=== PATIENT | female | born 1940 | race Caucasian/White ===

== ENCOUNTER 2018-12-21 15:50 | Inpatient (IN) | payer MEDICARE, OTHER ==
[2018-12-21] MEDS ORDERED: DILTIAZEM HCL INJ 25 MG/5 ML VIAL ONE (16:12)
[2018-12-21] MEDS ORDERED: DILTIAZEM HCL/D5W 125 MG/125 ML RTUINJ IV ONE (16:12)
[2018-12-21] MEDS ORDERED: IPRATROPIUM/ALBUTEROL 0.5-2.5 MG/3 ML AMPUL NEB ONE (16:16)
--- NOTE | 2018-12-21 16:16 | ER Document Report ---
ED General - General Chief Complaint: Chest Pain Stated Complaint: CHEST PAIN Time Seen by Provider: 12/21/18 16:14 Notes: Patient is a 78-year-old female with history of non-that presents to the emergency department for chief complaint of shortness of breath and palpitations. Patient reports that she started having more short of breath and palpitations that started earlier today, got progressively worse so she decided come to the emergency department. She states she is receiving experimental treatment for non-small cell lung carcinoma, was recently diagnosed within this year, she states it is improving as far she knows. She called over to the oncologist office and advised her to come to the emergency department. She denies prior history of atrial fibrillation. Denies other chronic medical conditions such as diabetes mellitus, hypertension, hyperlipidemia. No prior history of coronary disease or CHF that the patient is aware of. She has not noted any increased leg swelling recently either. She denies having any chest pain on my history taking. Past Medical History: Non-small cell lung carcinoma Past Surgical History: Cholecystectomy Social History: Denies tobacco, alcohol or drug use. Family History: Reviewed and noncontributory for presenting illness Allergies: Reviewed, see documented allergy list. REVIEW OF SYSTEMS: Other than noted above, the 12 point review of systems was reviewed with the patient and were negative, all pertinent findings are included in the HPI. PHYSICAL EXAMINATION: Vital signs reviewed, nursing noted reviewed. GENERAL: Patient in moderate distress, appears anxious HEAD: Atraumatic, normocephalic. EYES: Eyes appear normal, extraocular movements intact, sclera anicteric, conj unctiva are normal. ENT: nares patent, oropharynx clear without exudates. Moist mucous membranes. NECK: Normal range of motion, supple without lymphadenopathy LUNGS: No acute respiratory distress, lung sounds diminished at the bases bilaterally, she has diffuse wheezing in the upper lung lowry as well. HEART: Heart rate tachycardic, irregular rhythm, no audible murmur ABDOMEN: Soft, nontender, normoactive bowel sounds. No rebound, guarding, or rigidity. No masses appreciated. EXTREMITIES: Nontender, good range of motion, no pitting or edema. NEUROLOGICAL: No focal neurological deficits. Moves all extremities spontaneously Motor and sensory grossly intact on exam. PSYCH: Mildly anxious on exam, but answering questions appropriately. SKIN: Warm, Dry, normal turgor, no rashes or lesions noted on exposed skin TRAVEL OUTSIDE OF THE [place] IN LAST 30 DAYS: No - Related Data Allergies/Adverse Reactions: Sulfa (Sulfonamide Antibiotics) Allergy (Verified 12/21/18 17:01) Past Medical History - Social History Smoking Status: Never Smoker Family History: Reviewed & Not Pertinent Physical Exam - Vital signs Vitals: Resp Pulse Ox 26 H 96 12/21/18 16:10 12/21/18 16:10 Course - Re-evaluation Re-evalutation: Patient seen and examined vital signs reviewed. Laboratory data and imaging were ordered as appropriate for the patient's presenting symptoms and complaint, with consideration of any critical or life threatening conditions that may be associated with their obtained history and exam as noted above. Patient was treated with Cardizem bolus of 50 mg, with infusion, is to bring the patient's heart rate down from the 170s, down to 150s, but she is still rather tachycardic despite being on 15 mg an hour, at this point I decided to give the patient metoprolol 5 mg IV, which did improve the patient's heart rate to the 110s, and she appeared much more comfortable on exam, she is also given DuoNeb breathing treatments due to her wheezing. She was also placed on supplemental oxygen. Results were reviewed when available and demonstrated CT angiogram of the chest was obtained, to rule out pulmonary embolism in a patient that is tachycardic, short of breath with a history of lung cancer, this was negative for PE, but did demonstrate bilateral moderate-sized pleural effusions, without evidence of pneumonia. The patient was re-evaluated and was much improved after heart rate was controlled. Evaluation was most consistent with atrial fibrillation with rapid ventricular response, bilateral pleural effusions, likely related to the patient's lung carc inoma versus acute heart failure, which may be related to medications versus heart strain due to the patient's underlying lung disease. A call was placed to [facility], to review results, did discuss with the nursing staff, reviewed her prior CTs which did not show effusions, as recent as November. Results were discussed with the patient at this point after careful consideration I feel that that patient should be admitted to the hospital. This was discussed with the patient that it is in the best interest for their care to be admitted for further evaluation and management. Patient agreed with this plan of care. A call was placed to the admitted physician, Dr. Monet who graciously accepted the patient onto their service. *Note is created using voice recognition software and may contain spelling, syntax or grammatical errors. Laboratory 12/21/18 12/21/18 12/21/18 16:10 16:10 16:10 WBC 13.3 H RBC 3.88 Hgb 11.5 L Hct 35.1 L MCV 91 MCH 29.8 MCHC 32.9 RDW 16.3 H Plt Count 199 Seg Neutrophils % 86.0 H Lymphocytes % 5.6 L Monocytes % 7.8 Eosinophils % 0.2 Basophils % 0.4 Absolute Neutrophils 11.4 H Absolute Lymphocytes 0.7 Absolute Monocytes 1.0 Absolute Eosinophils 0.0 Absolute Basophils 0.1 Sodium 140.9 Potassium 4.7 Chloride 107 Carbon Dioxide 21 L Anion Gap 13 BUN 34 H Creatinine 0.87 Est GFR ( Amer) > 60 Est GFR (Non-Af Amer) > 60 Glucose 197 H Calcium 10.4 H Magnesium 2.1 Total Bilirubin 0.6 Direct Bilirubin 0.5 H Neonat Total Bilirubin Not Reportable Neonat Direct Bilirubin Not Reportable Neonat Indirect Bili Not Reportable AST 111 H ALT 113 H Alkaline Phosphatase 85 Troponin I 0.019 NT-Pro-B Natriuret Pep Total Protein 6.2 L Albumin 3.7 12/21/18 16:10 WBC RBC Hgb Hct MCV MCH MCHC RDW Plt Count Seg Neutrophils % Lymphocytes % Monocytes % Eosinophils % Basophils % Absolute Neutrophils Absolute Lymphocytes Absolute Monocytes Absolute Eosinophils Absolute Basophils Sodium Potassium Chloride Carbon Dioxide Anion Gap BUN Creatinine Est GFR ( Amer) Est GFR (Non-Af Amer) Glucose Calcium Magnesium Total Bilirubin Direct Bilirubin Neonat Total Bilirubin Neonat Direct Bilirubin Neonat Indirect Bili AST ALT Alkaline Phosphatase Troponin I NT-Pro-B Natriuret Pep 1920 H Total Protein Albumin Chest X-Ray 12/21/18 16:15 IMPRESSION: BASILAR ATELECTASIS VERSUS SCARRING. PROBABLE SMALL PLEURAL EFFUSIONS. Chest/Abdomen CTA 12/21/18 16:57 IMPRESSION: There is no evidence of pulmonary emboli. 13 mm spiculated right pulmonary nodule. Bilateral moderate pleural effusions, right slightly greater than left. - Vital Signs Vital signs: Temp Pulse Resp BP Pulse Ox 97.5 F 115 H 24 H 100/81 91 L 12/21/18 16:37 12/21/18 19:34 12/21/18 19:30 12/21/18 19:30 12/21/18 19:30 - Laboratory Result Diagrams: 12/21/18 16:10 12/21/18 16:10 Laboratory results interpreted by me: 12/21/18 12/21/18 12/21/18 16:10 16:10 16:10 WBC 13.3 H Hgb 11.5 L Hct 35.1 L RDW 16.3 H Seg Neutrophils % 86.0 H Lymphocytes % 5.6 L Absolute Neutrophils 11.4 H Carbon Dioxide 21 L BUN 34 H Glucose 197 H Calcium 10.4 H Direct Bilirubin 0.5 H AST 111 H ALT 113 H NT-Pro-B Natriuret Pep 1920 H Total Protein 6.2 L - EKG Interpretation by Me Additional EKG results interpreted by me: EKG demonstrates atrial fibrillation with rapid ventricular response, with a ventricular rate of 179 bpm, normal axis, QTC 439 ms, no evidence of acute ischemia in this EKG. No prior for comparison. Critical Care Note - Critical Care Note Total time excluding time spent on procedures (mins): 45 Comments: Critical care time 45 minutes exclusive from separate billable procedures for a patient requiring complex medical decision making, and high potential for clinical deterioration. In a patient with atrial fibrillation with rapid ventricular response requiring IV Cardizem infusion. Time spent obtaining history from patient or surrogate, discussions with consultants, development of treatment plan with patient or surrogate, evaluation of patient's response to treatment, examination of patient, ordering and performing treatments and interventions, ordering and review of laboratory studies, re-evaluation of patient's condition, ordering and review of radiographic studies and review of old charts Discharge - Discharge Clinical Impression: Atrial fibrillation with RVR, Bilateral pleural effusion, Transaminitis Non-small cell lung cancer Qualifiers: Laterality: unspecified laterality Qualified Code(s): C34.90 - Malignant neoplasm of unspecified part of unspecified bronchus or lung Condition: Stable Disposition: ADMITTED INPATIENT Admitting Provider: Chiki (Hospitalist) Unit Admitted: [facility]
[2018-12-21] MEDS: DILTIAZEM HCL/D5W 125 MG/125 ML RTUINJ IV PRN (16:20)
[2018-12-21 16:26] LABS: ABSOLUTE BASOPHILS # (AUTO) 0.1 10^3/uL (0.0-0.2); ABSOLUTE LYMPHOCYTES (AUTO) 0.7 10^3/uL (0.5-4.7); ABSOLUTE NEUT (AUTO) 11.4 10^3/uL (1.7-8.2); BASOPHILS % (AUTO) 0.4 % (0-2); EOSINOPHILS % (AUTO) 0.2 % (0-6); HEMATOCRIT 35.1 % (36.0-47.0); HEMOGLOBIN 11.5 g/dL (12.0-15.5); LYMPHOCYTES % (AUTO) 5.6 % (13-45); MEAN CORPUSCULAR HEMOGLOBIN 29.8 pg (27.0-33.4); MEAN CORPUSCULAR HGB CONC 32.9 g/dL (32.0-36.0); MEAN CORPUSCULAR VOLUME 91 fl (80-97); MONOCYTES % (AUTO) 7.8 % (3-13); PLATELET COUNT 199 10^3/uL (150-450); RED BLOOD COUNT 3.88 10^6/uL (3.72-5.28); RED CELL DISTRIBUTION WIDTH 16.3 % (11.5-14.0); TOTAL CELLS COUNTED % (AUTO) 100 %; WHITE BLOOD COUNT 13.3 10^3/uL (4.0-10.5)
[2018-12-21 16:48] LABS: ALANINE AMINOTRANSFERASE 113 U/L (9-52); ALBUMIN 3.7 g/dL (3.5-5.0); ALKALINE PHOSPHATASE 85 U/L (38-126); ANION GAP 13 (5-19); ASPARTATE AMINO TRANSFERASE 111 U/L (14-36); BILIRUBIN,DIRECT 0.5 mg/dL (0.0-0.4); BILIRUBIN,TOTAL 0.6 mg/dL (0.2-1.3); BLOOD UREA NITROGEN 34 mg/dL (7-20); CALCIUM 10.4 mg/dL (8.4-10.2); CARBON DIOXIDE 21 mmol/L (22-30); CHLORIDE 107 mmol/L (98-107); GLUCOSE 197 mg/dL (75-110); POTASSIUM 4.7 mmol/L (3.6-5.0); SODIUM 140.9 mmol/L (137-145); TOTAL PROTEIN 6.2 g/dL (6.3-8.2)
[2018-12-21] MEDS ORDERED: DILTIAZEM HCL INJ 25 MG/5 ML VIAL IV ONE (16:51)
--- NOTE | 2018-12-21 16:51 | RADIOLOGY REPORT (SQ) ---
EXAM DESCRIPTION: CHEST SINGLE VIEW COMPLETED DATE/TIME: 12/21/2018 4:40 pm REASON FOR STUDY: shortness of breath COMPARISON: None. EXAM PARAMETERS: NUMBER OF VIEWS: One view. TECHNIQUE: Single frontal radiographic view of the chest acquired. RADIATION DOSE: NA LIMITATIONS: None. FINDINGS: LUNGS AND PLEURA: Basilar atelectasis versus scarring. Probable small pleural effusions. MEDIASTINUM AND HILAR STRUCTURES: No masses. Contour normal. HEART AND VASCULAR STRUCTURES: Heart normal in size. Normal vasculature. BONES: No acute findings. HARDWARE: None in the chest. OTHER: No other significant finding. IMPRESSION: BASILAR ATELECTASIS VERSUS SCARRING. PROBABLE SMALL PLEURAL EFFUSIONS. TECHNICAL DOCUMENTATION: JOB ID: [id number] [employer]- All Rights Reserved Reading location - IP/workstation name: [email or web address]
[2018-12-21] MEDS ORDERED: METOPROLOL TARTRATE PF/INJ 5 MG/5 ML SDV IV ONE (17:31)
--- NOTE | 2018-12-21 17:40 | RADIOLOGY REPORT (SQ) ---
EXAM DESCRIPTION: CTA CHEST COMPLETED DATE/TIME: 12/21/2018 5:21 pm REASON FOR STUDY: shortness of breath, tachy, hx lung cancer COMPARISON: Chest x-ray 12/21/2018 TECHNIQUE: CT scan of the chest performed using helical scanning technique with dynamic intravenous contrast injection. Images reviewed with lung, soft tissue and bone windows. Reconstructed coronal and sagittal MPR images reviewed. Additional 3 dimensional post-processing performed to develop Maximal Intensity Projection images (IA P). All images stored on PACS. All CT scanners at this facility use dose modulation, iterative reconstruction, and/or weight based d osing when appropriate to reduce radiation dose to as low as reasonably achievable (ALARA). [facility]: Dose Right [facility]: CareDose [facility]: Dose Right [facility]: Teradose 4D [facility]: Wiggio CONTRAST TYPE AND DOSE: contrast/concentration: Isovue 350.00 mg/ml; Total Contrast Delivered: 75.0 ml; Total Saline Delivered: 106.0 ml Contrast bolus optimized for the pulmonary arteries. Not diagnostic for the aorta. RENAL FUNCTION: BUN 34 creatinine 0.87 RADIATION DOSE: CT Rad equipment meets quality standard of care and radiation dose reduction techniq ues were employed. CTDIvol: 15.4 - 34.7 mGy. DLP: 607 mGy-cm. . LIMITATIONS: None. FINDINGS: LUNGS AND PLEURA: Moderate bilateral pleural effusions, right greater than left. Spiculat ed 13 mm nodule in the right upper lobe on image 25 series 4. Mild airspace disease in each lower lo be. AORTA AND GREAT VESSELS: No aneurysm. Contrast bolus not optimized for the aorta. HEART: No pericardial effusion. No significant coronary artery calcifications. PULMONARY ARTERIES: No emboli visualized in the main pulmonary arteries or the segmental branches. HILAR AND MEDIASTINAL STRUCTURES: Hiatal hernia. HARDWARE: None in the chest. UPPER ABDOMEN: No significant findings. Limited exam. THYROID AND OTHER SOFT TISSUES: No masses. No adenopathy. BONES: No acute or significant finding. 3D MIPS: Confirm above findings. OTHER: No other significant finding. IMPRESSION: There is no evidence of pulmonary emboli. 13 mm spiculated right pulmonary nodule. Sawyer ateral moderate pleural effusions, right slightly greater than left. COMMENT: Quality ID # [id number]: Final reports with documentation of one or more dose reduction techniques (e.g., Automated exposure control, adjustment of the mA and/or kV according to patient size, use of iterative reconstruction technique) TECHNICAL DOCUMENTATION: JOB ID: [id number] [employer] [employer]- All Rights Reserved Reading location - IP/workstation name: [email or web address]
--- NOTE | 2018-12-21 19:03 | EKG REPORT ---
SEVERITY:- ABNORMAL ECG - ATRIAL FIBRILLATION WITH RAPID V-RATE LOW VOLTAGE IN FRONTAL LEADS BORDERLINE T ABNORMALITIES, DIFFUSE LEADS : Confirmed by: Charles Olvera MD 21-Dec-2018 19:02:35
[2018-12-21] MEDS ORDERED: LEVALBUTEROL HCL NEB 1.25 MG/3 ML AMPUL NEB PRN (19:44)
[2018-12-21] MEDS ORDERED: IPRATROPIUM BROMIDE 0.02% NEB 0.5 MG/2.5 ML AMPUL NEB PRN (19:44)
[2018-12-21] MEDS ORDERED: MAG HYDROX/AL HYDROX/SIMETH SUSP 30 ML UDCUP PO PRN (19:48)
[2018-12-21] MEDS: FLUTICASONE NASAL SPRAY 50 MCG/SPRY 120 SPRAY/16 GM NASL SCH (21:16)
[2018-12-21] MEDS: CHLORPHENIRAMINE MALEATE 4 MG TABLET PO SCH (21:18)
[2018-12-21] MEDS: ENOXAPARIN SODIUM INJ 80 MG/0.8 ML DISP.SYRIN SUBCUT SCH (21:20)
[2018-12-21 21:40] LABS: CREATINE KINASE MB 23.1 ng/mL (<4.55); TROPONIN I 0.019 ng/mL
[2018-12-21] MEDS ORDERED: NORMAL SALINE 1000 ML 1,000 ML IV ONE (22:28)
[2018-12-21] MEDS ORDERED: DIGOXIN INJ 0.5 MG/2 ML AMPULE IV ONE (22:29)
[2018-12-22] MEDS: DILTIAZEM HCL/D5W 125 MG/125 ML RTUINJ IV PRN ×4 (00:18→19:57)
[2018-12-22] MEDS: ENOXAPARIN SODIUM INJ 80 MG/0.8 ML DISP.SYRIN SUBCUT SCH ×3 (00:22→21:30)
[2018-12-22] MEDS: FLUTICASONE NASAL SPRAY 50 MCG/SPRY 120 SPRAY/16 GM NASL SCH ×3 (00:22→21:33)
[2018-12-22] MEDS: LEVALBUTEROL HCL NEB 1.25 MG/3 ML AMPUL NEB SCH ×3 (01:14→16:31)
[2018-12-22] MEDS: IPRATROPIUM BROMIDE 0.02% NEB 0.5 MG/2.5 ML AMPUL NEB SCH ×3 (01:14→16:31)
[2018-12-22] MEDS: METOPROLOL TARTRATE PF/INJ 5 MG/5 ML SDV IV PRN (01:53)
[2018-12-22 02:54] LABS: ABSOLUTE MONOCYTES (AUTO) 1.5 10^3/uL (0.1-1.4); ABSOLUTE NEUT (AUTO) 10.5 10^3/uL (1.7-8.2); BASOPHILS % (AUTO) 0.1 % (0-2); EOSINOPHILS % (AUTO) 0.1 % (0-6); HEMATOCRIT 32.6 % (36.0-47.0); HEMOGLOBIN 10.7 g/dL (12.0-15.5); LYMPHOCYTES % (AUTO) 7.4 % (13-45); MEAN CORPUSCULAR HGB CONC 32.9 g/dL (32.0-36.0); MEAN CORPUSCULAR VOLUME 91 fl (80-97); MONOCYTES % (AUTO) 11.7 % (3-13); PLATELET COUNT 178 10^3/uL (150-450); RED BLOOD COUNT 3.57 10^6/uL (3.72-5.28); RED CELL DISTRIBUTION WIDTH 16.2 % (11.5-14.0); SEGMENTED NEUTROPHILS % (AUTO) 80.7 % (42-78); TOTAL CELLS COUNTED % (AUTO) 100 %
--- NOTE | 2018-12-22 02:59 | PDOC H&P ---
History of Present Illness Admission Date/PCP: 12/21/18 20:14 MARAL KING Patient complains of: Palpitations and shortness of breath History of Present Illness: LESLYE BLANDON is a 78 year old female with a past medical history of anxiety, GERD and non-small cell lung cancer on experimental chemotherapy via [facility]. She presents with greater than 72 hours of palpitations and shortness of breath. Denies chest pain nausea vomiting diaphoresis or new medications beyond chemotherapy. Work-up reveals negative CTA for PE but moderate bilateral pulmonary emboli, A. fib with RVR in the 180s. She started on IV Cardizem and referred to the hospitalist for admission. Past Medical History Cardiac Medical History: Reports: Hypertension Psychiatric Medical History: Reports: Depression Past Surgical History Past Surgical History: Reports: Hysterectomy Social History Information Source: Patient Smoking Status: Never Smoker Frequency of Alcohol Use: None Drugs: None Hx Prescription Drug Abuse: No - Advance Directive Resuscitation Status: Full Code Family History Family History: Hypertension Parental Family History Reviewed: Yes Children Family History Reviewed: Yes Sibling(s) Family History Reviewed.: Yes Medication/Allergy Home Medications: Calcium Carbonate/Vitamin D3 [Calcium 600-Vit D3 800 Caplet] 1 tab PO DAILY 12/21/18 Escitalopram Oxalate [Lexapro 10 mg Tablet] 10 mg PO DAILY 12/21/18 Flaxseed Oil [Flax Seed Oil] 1,000 mg PO DAILY 12/21/18 Gluc Avila/Chondro Avila A/Vit C/Mn [Glucosamine Complex Capsule] 1 cap PO DAILY 12/21/18 Lisinopril [Prinivil 10 mg Tablet] 10 mg PO DAILY 12/21/18 Loratadine [Claritin 10 mg Tablet] 10 mg PO DAILY 12/21/18 Lorazepam [Ativan 0.5 mg Tablet] 0.5 mg PO QHS 12/21/18 Melatonin [Melatonin 5 mg Tablet] 5 mg PO QHS 12/21/18 Meloxicam [Mobic] 15 mg PO DAILY 12/21/18 Multivit-Min/Iron/Folic/Lutein [Multivitamin Women 50 Plus Tab] 1 tab PO DAILY 12/21/18 Logan-3 Fatty Acids/Fish Oil [Eql Fish Oil 1,200 mg Softgel] 1 cap PO DAILY 12/21/18 Osimertinib Mesylate [Tagrisso] 80 mg PO DAILY 12/21/18 Oxycodone HCl [Oxy-Ir 5 mg Tablet] 5 mg PO Q4HP PRN 12/21/18 Prochlorperazine Maleate [Compazine 10 mg Tablet] 10 mg PO Q6HP PRN 12/21/18 Selumetinib 75 mg PO BID 12/21/18 Allergies/Adverse Reactions: Sulfa (Sulfonamide Antibiotics) Allergy (Verified 12/21/18 17:01) Review of Systems Constitutional: PRESENT: as per HPI, fatigue, weakness. ABSENT: fever(s), headache(s), night sweats Eyes: ABSENT: visual disturbances Ears: ABSENT: hearing changes Cardiovascular: PRESENT: as per HPI, dyspnea on exertion. ABSENT: edema, orthropnea Respiratory: PRESENT: as per HPI, dyspnea. ABSENT: cough, hemoptysis, sputum Gastrointestinal: PRESENT: as per HPI Genitourinary: ABSENT: dysuria, hematuria Musculoskeletal: ABSENT: joint swelling Integumentary: ABSENT: rash, wounds Neurological: ABSENT: abnormal gait, abnormal speech, confusion, dizziness, focal weakness, syncope Psychiatric: PRESENT: anxiety Endocrine: ABSENT: cold intolerance, heat intolerance, polydipsia, polyuria Hematologic/Lymphatic: ABSENT: easy bleeding, easy bruising Physical Exam Vital Signs: Temp Pulse Resp BP Pulse Ox 97.5 F 118 H 29 H 95/85 L 99 12/21/18 16:37 12/21/18 21:31 12/22/18 01:41 12/22/18 01:41 12/22/18 01:41 Intake & Output 12/20/18 12/21/18 12/22/18 11:59 11:59 11:59 Intake Total 117 Balance 117 Weight 80 kg General appearance: PRESENT: cooperative, severe distress, thin. ABSENT: disheveled Head exam: PRESENT: atraumatic, normocephalic Eye exam: PRESENT: conjunctiva pink, EOMI, PERRLA. ABSENT: scleral icterus Ear exam: PRESENT: normal external ear exam Mouth exam: PRESENT: moist, tongue midline Neck exam: ABSENT: carotid bruit, JVD, lymphadenopathy, thyromegaly Respiratory exam: PRESENT: accessory muscle use, crackles, retraction, symmetrical, tachypnea. ABSENT: rales, rhonchi, wheezes Cardiovascular exam: PRESENT: irregular rhythm, +S1, +S2, tachycardia Pulses: PRESENT: normal dorsalis pedis pul Vascular exam: PRESENT: normal capillary refill GI/Abdominal exam: PRESENT: normal bowel sounds, soft. ABSENT: distended, guarding, mass, organolmegaly, rebound, tenderness Rectal exam: PRESENT: deferred Extremities exam: PRESENT: full ROM. ABSENT: calf tenderness, clubbing, pedal edema Neurological exam: PRESENT: alert, awake, oriented to person, oriented to place, oriented to time, oriented to situation, CN II-XII grossly intact. ABSENT: motor sensory deficit Psychiatric exam: PRESENT: anxious. ABSENT: homicidal ideation, suicidal ideation Skin exam: PRESENT: dry, intact, warm. ABSENT: cyanosis, rash Results Laboratory Results: 12/21/18 12/21/18 16:10 16:10 WBC 13.3 H RBC 3.88 Hgb 11.5 L Hct 35.1 L MCV 91 MCH 29.8 MCHC 32.9 RDW 16.3 H Plt Count 199 Seg Neutrophils % 86.0 H Lymphocytes % 5.6 L Monocytes % 7.8 Eosinophils % 0.2 Basophils % 0.4 Absolute Neutrophils 11.4 H Absolute Lymphocytes 0.7 Absolute Monocytes 1.0 Absolute Eosinophils 0.0 Absolute Basophils 0.1 Sodium 140.9 Potassium 4.7 Chloride 107 Carbon Dioxide 21 L Anion Gap 13 BUN 34 H Creatinine 0.87 Est GFR ( Amer) > 60 Est GFR (Non-Af Amer) > 60 Glucose 197 H Calcium 10.4 H Magnesium 2.1 Total Bilirubin 0.6 AST 111 H ALT 113 H Alkaline Phosphatase 85 Total Protein 6.2 L Albumin 3.7 12/21/18 12/21/18 12/21/18 16:10 16:10 20:25 Creatine Kinase 1148 H CK-MB (CK-2) Troponin I 0.019 NT-Pro-B Natriuret Pep 1920 H 12/21/18 20:25 Creatine Kinase CK-MB (CK-2) 23.10 H Troponin I 0.019 NT-Pro-B Natriuret Pep Impressions: Chest X-Ray 12/21/18 16:15 IMPRESSION: BASILAR ATELECTASIS VERSUS SCARRING. PROBABLE SMALL PLEURAL EFFUSIONS. Chest/Abdomen CTA 12/21/18 16:57 IMPRESSION: There is no evidence of pulmonary emboli. 13 mm spiculated right pulmonary nodule. Bilateral moderate pleural effusions, right slightly greater than left. Assessment and Plan - Diagnosis (1) Atrial fibrillation with RVR Is this a current diagnosis for this admission?: Yes Plan: Likely secondary to chemotherapeutic agent, IV Cardizem, Lopressor, anticoagulation initiated. Follow-up 2D echo (2) Bilateral pleural effusion Is this a current diagnosis for this admission?: Yes Plan: Likely secondary to acute high output congestive heart failure secondary to uncontrolled A. fib. Attempt diuresis following rate control. Failing improvement consider thoracentesis with cytology (3) Non-small cell lung cancer Qualifiers: Laterality: unspecified laterality Qualified Code(s): C34.90 - Malignant neoplasm of unspecified part of unspecified bronchus or lung Is this a current diagnosis for this admission?: Yes Plan: Hold chemotherapy, consult [facility] (4) Transaminitis Is this a current diagnosis for this admission?: Yes Plan: Likely secondary to chemotherapy versus acute high-output congestive heart failure. Follow-up Chem-12 - Time Time Spent with patient: 35 or more minutes - Inpatient Certification Medical Necessity: Need Close Monitoring Due to Risk of Patient Decompensation
[2018-12-22 03:04] LABS: ANION GAP 9 (5-19); BLOOD UREA NITROGEN 32 mg/dL (7-20); CALCIUM 9.6 mg/dL (8.4-10.2); CARBON DIOXIDE 23 mmol/L (22-30); CHLORIDE 111 mmol/L (98-107); GLUCOSE 142 mg/dL (75-110); POTASSIUM 4.4 mmol/L (3.6-5.0); SODIUM 143.2 mmol/L (137-145)
[2018-12-22 03:15] LABS: CREATINE KINASE MB 26.8 ng/mL (<4.55); TROPONIN I 0.015 ng/mL
[2018-12-22] MEDS: CHLORPHENIRAMINE MALEATE 4 MG TABLET PO SCH ×3 (04:49→17:50)
[2018-12-22] MEDS: LEVOFLOXACIN 750 MG/D5W RTU 750 MG/150 ML RTUPB IV SCH (04:52)
[2018-12-22] MEDS: PANTOPRAZOLE SODIUM 40 MG TABLET.DR PO SCH ×2 (05:07→17:34)
[2018-12-22] MEDS ORDERED: LISINOPRIL 10 MG TABLET PO SCH (10:00)
[2018-12-22 10:19] LABS: TROPONIN I 0.017 ng/mL
[2018-12-22 11:07] LABS: APPEARANCE,URINE CLOUDY; BILIRUBIN,URINE NEGATIVE (NEGATIVE); COLOR,URINE YELLOW; GLUCOSE, URINE NEGATIVE (NEGATIVE); KETONES,URINE TRACE mg/dL (NEGATIVE); LEUKOCYTE ESTERASE,URINE LARGE (NEGATIVE); NITRITE,URINE POSITIVE (NEGATIVE); PROTEIN,URINE 30 mg/dL (NEGATIVE); URINE SPECIFIC GRAVITY 1.038; UROBILINOGEN,URINE NEGATIVE mg/dL (<2.0)
[2018-12-22] MEDS: DIGOXIN 0.125 MG TABLET PO SCH (11:14)
[2018-12-22] MEDS: ESCITALOPRAM OXALATE 10 MG TABLET PO SCH (11:14)
[2018-12-22] MEDS: METOPROLOL TARTRATE 50 MG TABLET PO SCH ×2 (11:14→21:40)
[2018-12-22] MEDS ORDERED: CHLORPHENIRAMINE MALEATE 4 MG TABLET PO SCH (18:30)
[2018-12-22] MEDS ORDERED: DIGOXIN INJ 0.5 MG/2 ML AMPULE IV ONE (19:00)
--- NOTE | 2018-12-22 19:47 | PDOC CONSULTATION ---
Consultation-Blank Consultation: CARDIOLOGY CONSULTATION BY DR. NIR CHAUDHARI on 12/22/2018. Patient seen at 7 PM for formal consultation. Earlier the patient was seen around 12 noon in the emergency room. REASON FOR CONSULTATION: Patient with atrial fibrillation and shortness of breath. Consult REQUESTING PHYSICIAN: Dr. Tracey, [facility] hospitalist physician. History OF PRESENT ILLNESS: Note that the patient is severely anxious, and her history is very confusing. She is a 78-year-old female with known history of hypertension, and history of lung cancer on experimental drug protocol by [facility], possible history of thyroid cancer. States that since about 7 to 10 days she has been having progressively increasing shortness of breath and palpitations. She also has generalized fatigue and weakness. She feels dizzy at times but no definite syncope. She also states that her she is leg edema which has been progressive and also has orthopnea and PND. Although she has rapid palpitations which she has never had prior to this onset about 7 to 10 days ago she has no history of syncope. She states she has a cough which is dry and nonproductive, and has seen that the cough worsens when she is lying down and is somewhat improved when she is sitting up, suggesting that this is a PND equivalent. There is no history of wheezing. There is no hemoptysis. She denies chest pain or discomfort. There is no history of myocardial infarction. There is no prior history of TIA CVA. PAST MEDICAL HISTORY: Is positive for hypertension, anxiety, and history of lung cancer on experimental treatment protocol by [facility]. She denies past history of atrial fibrillation. There is no prior history of coronary artery disease. There is no prior history of symptoms of congestive heart failure except for the symptoms that arose about 7 to 10 days ago. There is no history of TIA CVA. There is no history of GI bleed. There is no history of asthma or COPD. There is no history of pulmonary embolism. There is no history of DVT. There is no history of sleep apnea. The patient denies any diabetes mellitus. It is very confusing whether the patient had thyroid cancer or not. She states when she was a young adult she had radiation treatment ablation of the thyroid. Subsequently she said she had a diagnosis of thyroid cancer and had surgery and subsequently is found that it was skin cancer. She also states she had surgery of the thyroid. But states that she was told there was no thyroid cancer. But earlier she said she also was diagnosed with thyroid cancer. She is not on any replacement therapy. There is no history of chronic kidney disease. There is no history of TIA CVA. She has severe anxiety. But no history of depression. Past Surgical History: Reports: Hysterectomy. She also states she had skin cancer removed from the neck. She has also had thyroid surgery, but is not on replacement therapy for thyroid. Social History Information Source: Patient Smoking Status: Never Smoker Frequency of Alcohol Use: None Drugs: None Hx Prescription Drug Abuse: No - Advance Directive Resuscitation Status: Full Code the patient's is her surrogate healthcare decision maker. Family History Family History: Hypertension Parental Family History Reviewed: Yes Children Family History Reviewed: Yes Sibling(s) Family History Reviewed.: Yes Medication/Allergy Home Medications: Calcium Carbonate/Vitamin D3 [Calcium 600-Vit D3 800 Caplet] 1 tab PO DAILY 12/21/18 Escitalopram Oxalate [Lexapro 10 mg Tablet] 10 mg PO DAILY 12/21/18 Flaxseed Oil [Flax Seed Oil] 1,000 mg PO DAILY 12/21/18 Gluc Avila/Chondro Avila A/Vit C/Mn [Glucosamine Complex Capsule] 1 cap PO DAILY 12/21/18 Lisinopril [Prinivil 10 mg Tablet] 10 mg PO DAILY 12/21/18 Loratadine [Claritin 10 mg Tablet] 10 mg PO DAILY 12/21/18 Lorazepam [Ativan 0.5 mg Tablet] 0.5 mg PO QHS 12/21/18 Melatonin [Melatonin 5 mg Tablet] 5 mg PO QHS 12/21/18 Meloxicam [Mobic] 15 mg PO DAILY 12/21/18 Multivit-Min/Iron/Folic/Lutein [Multivitamin Women 50 Plus Tab] 1 tab PO DAILY 12/21/18 [place]-3 Fatty Acids/Fish Oil [Eql Fish Oil 1,200 mg Softgel] 1 cap PO DAILY 12/21/18 Osimertinib Mesylate [Tagrisso] 80 mg PO DAILY 12/21/18 Oxycodone HCl [Oxy-Ir 5 mg Tablet] 5 mg PO Q4HP PRN 12/21/18 Prochlorperazine Maleate [Compazine 10 mg Tablet] 10 mg PO Q6HP PRN 12/21/18 Selumetinib 75 mg PO BID 12/21/18 Allergies/Adverse Reactions: Sulfa (Sulfonamide Antibiotics) Allergy (Verified 12/21/18 17:01) Current Medications Generic Name Dose Route Start Last Admin Trade Name Freq PRN Reason Stop Dose Admin Acetaminophen 650 mg 12/21/18 19:48 Tylenol 325 Mg Tablet PO 01/20/19 19:47 Q4HP PRN FOR PAIN OR TEMP Al Hydrox/Mg Hydrox/Simethicone 30 ml 12/21/18 19:48 Maalox Plus Susp 30 Udcup PO 01/20/19 19:47 Q6HP PRN HEARTBURN Digoxin 0.125 mg 12/22/18 10:15 12/22/18 11:14 Lanoxin 0.125 Mg Tablet PO 01/21/19 10:14 0.125 mg DAILY ADRIAN Administration Enoxaparin Sodium 80 mg 12/21/18 20:00 12/22/18 21:30 Lovenox Inj 80 Mg/0.8 Ml Disp.Syrin SUBCUT 01/20/19 19:59 80 mg Q12 ADRIAN Administration Escitalopram Oxalate 10 mg 12/22/18 10:00 12/22/18 11:14 Lexapro 10 Mg Tablet PO 01/21/19 09:59 10 mg DAILY ADRIAN Administration Fluticasone Propionate 2 spray 12/21/18 20:00 12/22/18 21:33 Flonase Nasal [place] 50 Mcg/[place] 16 Gm NASL 01/20/19 19:59 2 spr Q12 ADRIAN Administration Levofloxacin/Dextrose 750 mg in 150 mls @ 100 mls/hr 12/22/18 04:00 12/22/18 06:30 Levaquin Rtu 750 Mg/D5w 150 Ml Premix IV 12/29/18 03:59 Infused Q6AM ADRIAN Infusion Diltiazem HCl 125 mg in 125 mls @ 2.5 mls/hr 12/22/18 19:18 12/22/18 19:57 Cardizem Rtu Inj 125 Mg-D5w 125 Ml Premix IV 01/21/19 19:17 2.5 mls/hr CONTINUOUS PRN 2.5 mls/hr THIS MED IS NOT "PRN" Administration Protocol Ipratropium [place] 0.5 mg 12/22/18 00:00 12/22/18 16:31 Atrovent 0.02% Neb 0.5 Mg/2.5 Ml Ampul NEB 07/05/19 00:00 0.5 mg RTQ8 ADRIAN Administration Ipratropium [place] 0.5 mg 12/21/18 19:44 Atrovent 0.02% Neb 0.5 Mg/2.5 Ml Ampul NEB 01/20/19 19:43 [id number] PRN SHORTNESS OF BREATH Levalbuterol HCl 1.25 mg 12/22/18 00:00 12/22/18 16:31 Xopenex Neb 1.25 Mg/3 Ml Ampul NEB 01/21/19 00:00 1.25 mg RTQ8 ADRIAN Administration Levalbuterol HCl 1.25 mg 12/21/18 19:44 Xopenex Neb 1.25 Mg/3 Ml Ampul NEB 01/20/19 19:43 [id number] PRN SHORTNESS OF BREATH Lorazepam 0.5 mg 12/22/18 22:00 12/22/18 21:30 Ativan 0.5 Mg Tablet PO 12/29/18 21:59 0.5 mg QHS ADRIAN Administration Magnesium Hydroxide 30 ml 12/21/18 19:48 Milk Of Magnesia 30 Ml Udcup PO 01/20/19 19:47 HSP PRN FOR CONSTIPATION Melatonin 5 mg 12/22/18 22:00 12/22/18 21:30 Melatonin 5 Mg Tablet PO 01/21/19 21:59 5 mg QHS ADRIAN Administration Metoprolol Tartrate 5 mg 12/21/18 19:48 12/22/18 01:53 Lopressor Inj/Pf 5 Mg/5 Ml Sdv IV 01/20/19 19:47 5 mg Q6HP PRN Administration hr>100 Metoprolol Tartrate 50 mg 12/22/18 10:13 12/22/18 21:40 Lopressor 50 Mg Tablet PO 01/21/19 10:12 Not Given Q12 ADRIAN Pantoprazole Sodium 40 mg 12/22/18 06:00 12/22/18 17:[address] Tablet PO 01/21/19 05:59 40 mg BID@0600,1700 ADRIAN Administration Discontinued Medications Generic Name Dose Route Start Last Admin Trade Name Freq PRN Reason Stop Dose Admin Albuterol/Ipratropium 3 ml 12/21/18 16:16 12/21/18 16:48 Duoneb 3 Ml Ampul NEB 12/21/18 16:17 3 ml NOW ONE Administration Calcium Gluconate 1,000 mg 12/22/18 20:00 12/22/18 20:13 Calcium Gluconate Inj 1000 Mg/10 Ml IV 12/22/18 20:01 1,000 mg NOW ONE Administration Chlorpheniramine Maleate 4 mg 12/21/18 20:00 12/22/18 17:50 Chlor-Trimeton 4 Mg Tablet PO 12/22/18 14:01 Not Given Q6H ADRIAN Chlorpheniramine Maleate 4 mg 12/22/18 18:30 12/22/18 17:57 Chlor-Trimeton 4 Mg Tablet PO 12/22/18 18:31 4 mg Q6H ADRIAN Administration Digoxin 0.25 mg 12/21/18 22:29 12/21/18 22:51 Lanoxin Inj 0.5 Mg/2 Ml Ampule IV 12/21/18 22:30 0.25 mg NOW ONE Administration Digoxin 0.25 mg 12/22/18 19:00 12/22/18 18:39 Lanoxin Inj 0.5 Mg/2 Ml Ampule IV 12/22/18 19:01 0.25 mg NOW ONE Administration Diltiazem HCl Confirm 12/21/18 16:12 12/21/18 16:49 Cardizem Inj 25 Mg/5 Ml Vial Administered 12/21/18 16:13 Not Given Dose 25 mg .ROUTE .STK-MED ONE Diltiazem HCl 15 mg 12/21/18 16:51 12/21/18 16:15 Cardizem Inj 25 Mg/5 Ml Vial IV 12/21/18 16:52 15 mg NOW ONE Administration Diltiazem HCl Confirm 12/21/18 16:12 12/21/18 16:51 Cardizem Rtu Inj 125 Mg-D5w 125 Ml Premix Administered 12/21/18 16:13 Not Given Dose 125 mg in 125 mls @ ud IV .STK-MED ONE Diltiazem HCl 125 mg in 125 mls @ 0 mls/hr 12/21/18 16:51 12/22/18 15:40 Cardizem Rtu Inj 125 Mg-D5w 125 Ml Premix IV 01/20/19 16:50 Infused CONTINUOUS PRN Titration THIS MED IS NOT "PRN" Protocol Titrate Sodium Chloride 1,000 mls @ 500 mls/hr 12/21/18 22:28 12/22/18 01:30 Nacl 0.9% 1000 Ml Iv Soln IV 12/22/18 00:27 Infused X 1 BAG ONE Infusion Lisinopril 10 mg 12/22/18 10:00 12/22/18 11:14 Prinivil 10 Mg Tablet PO 01/21/19 09:59 10 mg DAILY ADRIAN Administration Metoprolol Tartrate 5 mg 12/21/18 17:31 12/21/18 17:51 Lopressor Inj/Pf 5 Mg/5 Ml Sdv IV 12/21/18 17:32 5 mg NOW ONE Administration Review of Systems Constitutional: PRESENT: as per HPI, fatigue, weakness. ABSENT: fever(s), headache(s), night sweats Eyes: ABSENT: visual disturbances. There is no amblyopia diplopia. There is no amaurosis fugax Ears: ABSENT: hearing changes. There is no tinnitus. Cardiovascular: PRESENT: as per HPI, dyspnea on exertion. edema, orthropnea. She also has palpitations. There is no history of syncope. Respiratory: PRESENT: as per HPI, dyspnea. ABSENT: cough, hemoptysis, sputum. She has a history of lung cancer, and is on experimental chemotherapy for this Gastrointestinal: PRESENT: No history of fatty food intolerance. No history of hepatitis. No history of jaundice. No history of altered bowel movements. No history of GI bleed no history of GERD Genitourinary: ABSENT: dysuria, hematuria. Denies history of chronic kidney disease. Musculoskeletal: ABSENT: joint swelling. No history of collagen vascular disease Integumentary: ABSENT: rash, wounds. There is no pruritus. There is no yellowish discoloration of the skin. Neurological: ABSENT: abnormal gait, abnormal speech, confusion, dizziness, focal weakness, syncope. Denies symptoms of TIA or CVA. There is no headaches migraines or seizures. Psychiatric: PRESENT: anxiety. There is no suicidal ideation. There is no homicidal ideation. Endocrine: ABSENT: cold intolerance, heat intolerance, polydipsia, polyuria. She states that she has a history of thyroid Hematologic/Lymphatic: ABSENT: easy bleeding, easy bruising PHYSICAL EXAMINATION: The patient is mild to moderately obese. In some distress due to shortness of breath and feeling of palpitations. She is also very anxious. Selected Entries 0612/22/18 12/22/18 17:25 19:00 19:45 Temperature 97.2 F Pulse Rate 89 Respiratory 20 Rate Blood Pressure 92/66 L Blood Pressure 98/76 L [Upper Arm] Blood Pressure 83 Mean [Upper Arm ] Blood Pressure Sitting Position [Upper Arm] O2 Sat by Pulse 94 Oximetry Oxygen Delivery Nasal Cannula Method ( includes room air) Oxygen Flow 4 Rate HEAD: Is atraumatic normocephalic. EYES: Pupils are equal round regular reactive to light accommodation. Extraocular movements are normal. There is no conjunctival pallor. Is no scleral icterus. EARS: Tympanic membranes are intact. External auditory canals are clear. NOSE: There is no deviated nasal septum. There is no inflammation nasal mucous membrane. MOUTH: Mucous membranes of mouth are moist. Tongue is moist. There is no ulcers. There is no bleeding from the gums. THROAT: There is no redness of the oropharynx. There is no exudates. SKIN: There is no skin lesions or skin rashes. There is no particular ecchymosis. NECK: Is supple. There is no JVD present. Carotids are equal there is no bruit. There is scar of prior thyroidectomy present. There is some diffuse enlargement of the thyroid gland. There is no lymphadenopathy. There is no accessory muscle respiration use. Trachea central. LUNGS: There is absent breath sounds in dullness in both the bases. I was not there is an area of fine rales of CHF. There is no chest wall tend erness. HEART: S1-S2 is heard. S1 is of variable intensity. There is no S3 gallop. There is no S4 gallop. There is systolic murmur left sternal border and the apex. There is murmur of severe mitral regurgitation present. With the murmur heard in the apex radiating to the left axilla. There is no aortic stenosis or aortic regurgitation murmur. There is no rub. ABDOMEN: Is obese. Nontender. There is no hepatospleno megaly. Bowel sounds well heard. EXTREMITIES: Femorals are diminished. There is no femoral bruits. Leg pulses are diminished. There is 2+ bilateral pitting edema. There is no DVT or cellulitis. There is no sinus or clubbing. There is no calf tenderness. WET END TESTER: The patient is conscious awake alert oriented x3 with no focal deficits. PSYCHIATRIC: The patient appears to be anxious. But has judgment insight are intact. Labs- All tests 24 hr 12/22/18 12/22/18 12/22/18 02:33 02:33 02:33 WBC 13.0 H RBC 3.57 L Hgb 10.7 L Hct 32.6 L MCV 91 MCH 30.0 MCHC 32.9 RDW 16.2 H Plt Count 178 Seg Neutrophils % 80.7 H Lymphocytes % 7.4 L Monocytes % 11.7 Eosinophils % 0.1 Basophils % 0.1 Absolute Neutrophils 10.5 H Absolute Lymphocytes 1.0 Absolute Monocytes 1.5 H Absolute Eosinophils 0.0 Absolute Basophils 0.0 Sodium Potassium Chloride Carbon Dioxide Anion Gap BUN Creatinine Est GFR ( Amer) Est GFR (Non-Af Amer) Glucose Calcium Creatine Kinase 1091 H CK-MB (CK-2) 26.80 H Troponin I 0.015 Urine Color Urine Appearance Urine pH Ur Specific Combs Urine Protein Urine Glucose (UA) Urine Ketones Urine Blood Urine Nitrite Urine Bilirubin Urine Urobilinogen Ur Leukocyte Esterase Urine WBC (Auto) Urine RBC (Auto) Urine Bacteria (Auto) Squamous Epi Cells Auto U Non-Squamous Epis Auto Urine Ascorbic Acid Stool Occult Blood 12/22/18 12/22/18 12/22/18 02:33 09:20 09:20 WBC RBC Hgb Hct MCV MCH MCHC RDW Plt Count Seg Neutrophils % Lymphocytes % Monocytes % Eosinophils % Basophils % Absolute Neutrophils Absolute Lymphocytes Absolute Monocytes Absolute Eosinophils Absolute Basophils Sodium 143.2 Potassium 4.4 Chloride 111 H Carbon Dioxide 23 Anion Gap 9 BUN 32 H Creatinine 0.74 Est GFR ( Amer) > 60 Est GFR (Non-Af Amer) > 60 Glucose 142 H Calcium 9.6 Creatine Kinase 1090 H CK-MB (CK-2) 29.00 H Troponin I 0.017 Urine Color Urine Appearance Urine pH Ur Specific Combs Urine Protein Urine Glucose (UA) Urine Ketones Urine Blood Urine Nitrite Urine Bilirubin Urine Urobilinogen Ur Leukocyte Esterase Urine WBC (Auto) Urine RBC (Auto) Urine Bacteria (Auto) Squamous Epi Cells Auto U Non-Squamous Epis Auto Urine Ascorbic Acid Stool Occult Blood 12/22/18 12/22/18 10:30 17:00 WBC RBC Hgb Hct MCV MCH MCHC RDW Plt Count Seg Neutrophils % Lymphocytes % Monocytes % Eosinophils % Basophils % Absolute Neutrophils Absolute Lymphocytes Absolute Monocytes Absolute Eosinophils Absolute Basophils Sodium Potassium Chloride Carbon Dioxide Anion Gap BUN Creatinine Est GFR ( Amer) Est GFR (Non-Af Amer) Glucose Calcium Creatine Kinase CK-MB (CK-2) Troponin I Urine Color YELLOW Urine Appearance CLOUDY Urine pH 6.0 Ur Specific Combs 1.038 Urine Protein 30 H Urine Glucose (UA) NEGATIVE Urine Ketones TRACE H Urine Blood MODERATE H Urine Nitrite POSITIVE H Urine Bilirubin NEGATIVE Urine Urobilinogen NEGATIVE Ur Leukocyte Esterase LARGE H Urine WBC (Auto) >182 Urine RBC (Auto) 21 Urine Bacteria (Auto) 3+ Squamous Epi Cells Auto 2 U Non-Squamous Epis Auto 3 Urine Ascorbic Acid NEGATIVE Stool Occult Blood NEGATIVE Chest X-Ray 12/21/18 16:15 IMPRESSION: BASILAR ATELECTASIS VERSUS SCARRING. PROBABLE SMALL PLEURAL EFFUSIONS. Chest/Abdomen CTA 12/21/18 16:57 IMPRESSION: There is no evidence of pulmonary emboli. 13 mm spiculated right pulmonary nodule. Bilateral moderate pleural effusions, right slightly greater than left. The patient's echocardiogram: Shows mildly enlarged left ventricle. Severe global hypokinesis with LV ejection fraction severely reduced to 30%. There is no aortic stenosis. Or aortic regurgitation of significance. There is severe mitral regurgitation. There is left atrial enlargement. There is at least moderate pulmonary hypertension with mild tricuspid regurgitation. Right ventricle systolic pressure is at least more than 50 mmHg assuming a RA mean of greater than 20. There is no pericardial effusion. There is a large left pleural effusion. EKG shows atrial fibrillation with rapid ventricular response. There is diffuse nonspecific T changes. IMPRESSION/RECOMMENDATION: 1. Atrial fibrillation with rapid ventricular response. Most likely the onset is about 7 to 10 days when the patient started becoming symptomatic this dyspnea on exertion and symptoms of biventricular failure. Note earlier the patient was on a IV Cardizem infusion which had to be stopped due to her blood pressure dropping. The patient did receive 1 dose of digoxin 0.25 mg intravenously. In view of the patient's heart rate tended to go to around 120 in view of the patient's soft blood pressure, will start the patient on a low-dose of Cardizem at 2.5 mg/h. To counteract the hypotensive effect of Cardizem we will start the patient on a drip containing 1 amp of calcium gluconate in the 100 mL of normal saline to run at 5 mL/h. In the meantime we will hold the patient's beta- dipak. Would also recommend full dose Lovenox's. This will temporarily held tomorrow until after the patient has a central line placed. Also would discontinue the patient's albuterol treatment, since the patient does not have any wheezing or any symptoms suggestive of reactive airway disease. See below 2. Acute systolic biventricular failure there is acute systolic right ventricular and left ventricular failure: Would recommend placing a central line on the patient and transferring the patient to ICU to start the patient on inotropic treatment. And hence will hold the patient's a.m. dose of Lovenox tomorrow morning after the central line is placed. Then will resume the patient's Lovenox. This has been discussed with the patient. She is agreeable. 3. 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 4. Severe mitral regurgitation by exam and echo: Controlling the patient's heart rate, and trying to convert the patient to sinus rhythm, and also treating the patient's heart failure most likely will improve the patient's mitral regurg. 5. At least moderate pulmonary hypertension: An inotrope such as milrinone and IV nitroglycerin might be helpful. IV nitroglycerin will be started if the blood pressure permits. The other option is to control the patient's heart rate with a infusion of esmolol and start the patient on a Levophed drip. Will reassess the patient in the morning. 6. At least moderate bilateral pleural effusions: Most likely secondary to patient's heart failure which is biventricular. Doubt that this is secondary to Pan stasis. 7. Past history of hypertension: At present blood pressure low. 8. History of lung cancer on experimental drug regimen protocol. Recommend oncology consult with . 9.? Thyroid status. The patient is very inconsistent with a history. She states she had ablation therapy with radioactive iodine when she was a young adult. She also states that she was diagnosed with the thyroid cancer. Subsequently she said that there was no cancer found after the thyroidectomy. Also the patient's not on replacement. Hence will check thyroid function tests 10. Anxiety: Consider antianxiety medication. Medications reviewed. Medications adjusted. Management plan discussed with attending physician on the case. Medical decision making is of high complexity. Will follow. 60 minutes spent on this patient with more than 50% time spent in direct patient care. Echo findings were discussed with the patient. Note that the is not at the bedside at present, or earlier when I saw the patient briefly in the emergency room.
[2018-12-22] MEDS ORDERED: CALCIUM GLUCONATE 1000 MG/10 ML INJ IV ONE (20:00)
--- NOTE | 2018-12-22 20:23 | XCELERA REPORT ---
[address] [address] Transthoracic Echocardiogram Report Name: LESLYE BLANDON Age: 78 yrs Gender: Female : 1940 Patient Status: Inpatient Patient Location: [place] [address]^A Study Date: 12/21/2018 08:34 PM Height: 63 in Weight: 176 lb BSA: 1.8 m2 Procedure: A two-dimensional transthoracic echocardiogram with color flow and Doppler was performed. Study Quality: Fair. Reason For Study: Atrial Fibrillation / SOB History: Atrial Fibrillation / SOB. Ordering Physician: ARLENE NAILS Performed By: Carol Salazar Interpretation Summary The left ventricle is mildly dilated. There is normal left ventricular wall thickness. LV EF is 30% Left ventricular systolic function is severely reduced. There is severe global hypokinesis of the left ventricle. There is no thrombus. No ASD,VSD or PFO seen. The right ventricle is normal in size and function. The right atrium is normal. The left atrium is mildly dilated. There is no evidence of mitral valve prolapse. There is no vegetation seen on the mitral valve. There is no mitral valve stenosis. There is a severe amount of mitral regurgitation There is no aortic valvular vegetation. There is aortic sclerosis without aortic stenosis. There is no LVOT obstruction. There is a trace amount of aortic regurgitation There is no tricuspid stenosis. There is a mild amount of tricuspid regurgitation At least moderate Pulmonary hypertension.RVSP is greater than 51 mm of Hg , with RA mean Greater than 20. There is no pulmonic valvular stenosis. There is a mild to moderate amount of pulmonic regurgitation The aortic root is normal size. The inferior vena cava appeared dilated and did not change with respiration (RAP > 20 mmHg) There is no pericardial effusion. Large left pleural effusion. MMode/2D Measurements & Calculations RVDd: 2.7 cm LVIDd: 5.6 cm FS: 10.8 % Ao root diam: 2.7 cm IVSd: 0.73 cm LVIDs: 5.0 cm EDV(Teich): 152.3 ml Ao root area: 5.9 cm2 LVPWd: 0.91 cm ESV(Teich): 117.0 ml LA dimension: 4.1 cm EF(Teich): 23.2 % Doppler Measurements & Calculations MV E max ramiro: MV P1/2t max ramiro: Ao V2 max: LV V1 max P.1 cm/sec 104.7 cm/sec 103.9 cm/sec 4.4 mmHg MV P1/2t: 46.7 msec Ao max PG: LV V1 max: MVA(P1/2t): 4.7 cm2 4.3 mmHg 105.3 cm/sec MV dec slope: 656.1 cm/sec2 MV dec time: 0.13 sec PA V2 max: PI end-d ramiro: TR max ramiro: MV P1/2t-pr_phl: 77.4 cm/sec 181.9 cm/sec 276.1 cm/sec 46.7 msec PA max P.4 mmHg TR max P.5 mmHg Left Ventricle The left ventricle is mildly dilated. There is normal left ventricular wall thickness. LV EF is 30%. Left ventricular systolic function is severely reduced. There is severe global hypokinesis of the left ventricle. There is no thrombus. No ASD,VSD or PFO seen. Right Ventricle The right ventricle is normal in size and function. Atria The right atrium is normal. The left atrium is mildly dilated. Mitral Valve There is mild mitral annular calcification. There is no evidence of mitral valve prolapse. There is no vegetation seen on the mitral valve. There is no mitral valve stenosis. There is a severe amount of mitral regurgitation. Aortic Valve There is no aortic valvular vegetation. There is aortic sclerosis without aortic stenosis. There is no LVOT obstruction. There is a trace amount of aortic regurgitation. Tricuspid Valve There is no tricuspid stenosis. There is a mild amount of tricuspid regurgitation. At least moderate Pulmonary hypertension.RVSP is greater than 51 mm of Hg , with RA mean Greater than 20. Pulmonic Valve There is no pulmonic valvular stenosis. There is a mild to moderate amount of pulmonic regurgitation. Great Vessels The aortic root is normal size. The inferior vena cava appeared dilated and did not change with respiration (RAP > 20 mmHg). Effusions There is no pericardial effusion. Large left pleural effusion. : ARLENE NAILS > Haylee Yin
[2018-12-22] MEDS: MELATONIN 5 MG TABLET PO SCH (21:30)
[2018-12-22] MEDS: LORAZEPAM 0.5 MG TABLET PO SCH (21:30)
[2018-12-23] MEDS: IPRATROPIUM BROMIDE 0.02% NEB 0.5 MG/2.5 ML AMPUL NEB SCH ×3 (00:24→15:40)
[2018-12-23] MEDS: LEVALBUTEROL HCL NEB 1.25 MG/3 ML AMPUL NEB SCH ×3 (00:24→15:40)
[2018-12-23] MEDS: PANTOPRAZOLE SODIUM 40 MG TABLET.DR PO SCH ×2 (05:24→17:28)
[2018-12-23] MEDS: LEVOFLOXACIN 750 MG/D5W RTU 750 MG/150 ML RTUPB IV SCH (05:25)
[2018-12-23 06:38] LABS: FREE T3 4.13 pg/mL (2.77-5.27); FREE T4 (FREE THYROXINE) 1.46 ng/dL (0.78-2.19)
[2018-12-23 06:51] LABS: THYROID STIMULATING HORMONE 0.07 uIU/mL (0.47-4.68)
--- NOTE | 2018-12-23 07:17 | Operative Report ---
Nonrecallable Operative Report DATE OF SURGERY: 12/23/18 PREOPERATIVE DIAGNOSIS: 1. Phlebosclerosis. 2. Atrial fibrillation with rapid ventricular rate. POSTOPERATIVE DIAGNOSIS: Same as above. OPERATION: 1. Ultrasound-guided central venous puncture. 2. Left internal jugular vein central line placement. SURGEON: ASMITA CROFT ANESTHESIA: Local TISSUE REMOVED OR ALTERED: None COMPLICATIONS: None apparent ESTIMATED BLOOD LOSS: Minimal PROCEDURE: Drains/implants: Left internal jugular vein central line at 14 cm. Procedure in detail: After informed consent was obtained, the patient was laid in the Trendelenburg position in the room on the medical kaufman. The area of the left neck and chest were prepped and draped in a normal sterile fashion. An ultrasound was used to identify the left internal jugular vein. This was compressible with normal flow. Under direct ultrasonic guidance, the internal jugular vein was accessed using the supplied needle. Dark venous, nonpulsatile blood was returned in the syringe. The wire was inserted into the vein. It passed easily. The wire was confirmed to be within the lumen of the vein using the ultrasound device. The catheter was then slid over the wire using a modified Seldinger technique. The catheter was sutured to the skin. An occlusive dressing was placed. The catheter was aspirated and flushed x3 without difficulty. Once this was completed, the procedure was concluded. All sponge, instrument, and needle counts were correct x2. Condition: Fair.
[2018-12-23] MEDS ORDERED: LORAZEPAM INJ 2 MG/1 ML VIAL ONE (07:33)
[2018-12-23] MEDS ORDERED: DIGOXIN INJ 0.5 MG/2 ML AMPULE ONE (07:33)
[2018-12-23] MEDS ORDERED: DIPHENHYDRAMINE HCL 50 MG/ML VIAL ONE (07:34)
--- NOTE | 2018-12-23 08:15 | RADIOLOGY REPORT (SQ) ---
EXAM DESCRIPTION: CHEST SINGLE VIEW COMPLETED DATE/TIME: 12/23/2018 7:40 am REASON FOR STUDY: Central line placement COMPARISON: 12/21/2018. EXAM PARAMETERS: NUMBER OF VIEWS: One view. TECHNIQUE: Single frontal radiographic view of the chest acquired. RADIATION DOSE: NA LIMITATIONS: None. FINDINGS: LUNGS AND PLEURA: Moderate right pleural effusion. Left lung clear. No pneumothorax. MEDIASTINUM AND HILAR STRUCTURES: No masses. Contour normal. HEART AND VASCULAR STRUCTURES: Heart normal in size. Normal vasculature. BONES: No acute findings. HARDWARE: Central line on the left side with the tip at the junction of the superior vena cava and br achiocephalic vein. OTHER: No other significant finding. IMPRESSION: 1. CENTRAL LINE APPEARS TO BE IN APPROPRIATE POSITION. NO PNEUMOTHORAX. 2. MODERATE RIGHT PLEURAL EFFUSION. TECHNICAL DOCUMENTATION: JOB ID: [id number] [employer]- All Rights Reserved Reading location - IP/workstation name: [email or web address]
--- NOTE | 2018-12-23 09:50 | PDOC PROGRESS REPORT ---
Subjective Progress Note for:: 12/22/18 Subjective:: The patient is on experimental chemotherapy at [facility] [place]. Review of the side effects revealed that her atrial fibrillation and congestive heart failure part of the listed adverse effects. She is quite short of breath at rest. She just finished a nebulizer treatment. Reason For Visit: AFIB, LUNG CA CHF Physical Exam Vital Signs: Temp Pulse Resp BP Pulse Ox 98.7 F 107 H 30 H 92/64 L 97 12/22/18 07:35 12/22/18 01:14 12/22/18 11:30 12/22/18 11:30 12/22/18 11:15 Intake & Output 12/21/18 12/22/18 12/23/18 06:59 06:59 06:59 Intake Total 1267 112 Balance 1267 112 Weight 80 kg General appearance: PRESENT: cooperative, mild distress, well-developed Head exam: PRESENT: atraumatic, normocephalic Eye exam: PRESENT: conjunctiva pink. ABSENT: scleral icterus Ear exam: PRESENT: normal external ear exam Mouth exam: PRESENT: moist, tongue midline Respiratory exam: PRESENT: symmetrical, tachypnea, wheezes. ABSENT: accessory muscle use, rales, rhonchi Cardiovascular exam: PRESENT: irregular rhythm, tachycardia GI/Abdominal exam: PRESENT: normal bowel sounds, soft. ABSENT: distended, tenderness Rectal exam: PRESENT: deferred Gentrourinary exam: ABSENT: indwelling catheter Extremities exam: PRESENT: pedal edema Neurological exam: PRESENT: alert, awake, oriented to time, oriented to situation, CN II-XII grossly intact Psychiatric exam: PRESENT: anxious - Questioning her involvement in the research trial project. Focused psych exam: ABSENT: delusional, restlessness Results Laboratory Results: 12/22/18 02:33 12/22/18 02:33 12/21/18 12/21/18 12/22/18 16:10 16:10 02:33 WBC 13.3 H 13.0 H RBC 3.88 3.57 L Hgb 11.5 L 10.7 L Hct 35.1 L 32.6 L MCV 91 91 MCH 29.8 30.0 MCHC 32.9 32.9 RDW 16.3 H 16.2 H Plt Count 199 178 Seg Neutrophils % 86.0 H 80.7 H Lymphocytes % 5.6 L 7.4 L Monocytes % 7.8 11.7 Eosinophils % 0.2 0.1 Basophils % 0.4 0.1 Absolute Neutrophils 11.4 H 10.5 H Absolute Lymphocytes 0.7 1.0 Absolute Monocytes 1.0 1.5 H Absolute Eosinophils 0.0 0.0 Absolute Basophils 0.1 0.0 Sodium 140.9 Potassium 4.7 Chloride 107 Carbon Dioxide 21 L Anion Gap 13 BUN 34 H Creatinine 0.87 Est GFR ( Amer) > 60 Est GFR (Non-Af Amer) > 60 Glucose 197 H Calcium 10.4 H Magnesium 2.1 Total Bilirubin 0.6 AST 111 H ALT 113 H Alkaline Phosphatase 85 Total Protein 6.2 L Albumin 3.7 Urine Color Urine Appearance Urine pH Ur Specific [place] Urine Protein Urine Glucose (UA) Urine Ketones Urine Blood Urine Nitrite Ur Leukocyte Esterase Urine WBC (Auto) Urine RBC (Auto) 12/22/18 12/22/18 02:33 10:30 WBC RBC Hgb Hct MCV MCH MCHC RDW Plt Count Seg Neutrophils % Lymphocytes % Monocytes % Eosinophils % Basophils % Absolute Neutrophils Absolute Lymphocytes Absolute Monocytes Absolute Eosinophils Absolute Basophils Sodium 143.2 Potassium 4.4 Chloride 111 H Carbon Dioxide 23 Anion Gap 9 BUN 32 H Creatinine 0.74 Est GFR ( Amer) > 60 Est GFR (Non-Af Amer) > 60 Glucose 142 H Calcium 9.6 Magnesium Total Bilirubin AST ALT Alkaline Phosphatase Total Protein Albumin Urine Color YELLOW Urine Appearance CLOUDY Urine pH 6.0 Ur Specific [place] 1.038 Urine Protein 30 H Urine Glucose (UA) NEGATIVE Urine Ketones TRACE H Urine Blood MODERATE H Urine Nitrite POSITIVE H Ur Leukocyte Esterase LARGE H Urine WBC (Auto) >182 Urine RBC (Auto) 21 12/21/18 12/21/18 12/21/18 16:10 16:10 20:25 Creatine Kinase 1148 H CK-MB (CK-2) Troponin I 0.019 NT-Pro-B Natriuret Pep 1920 H 12/21/18 12/22/18 12/22/18 20:25 02:33 02:33 Creatine Kinase 1091 H CK-MB (CK-2) 23.10 H 26.80 H Troponin I 0.019 0.015 NT-Pro-B Natriuret Pep 12/22/18 12/22/18 09:20 09:20 Creatine Kinase 1090 H CK-MB (CK-2) 29.00 H Troponin I 0.017 NT-Pro-B Natriuret Pep Impressions: Chest X-Ray 12/21/18 16:15 IMPRESSION: BASILAR ATELECTASIS VERSUS SCARRING. PROBABLE SMALL PLEURAL EFFUSIONS. Chest/Abdomen CTA 12/21/18 16:57 IMPRESSION: There is no evidence of pulmonary emboli. 13 mm spiculated right pulmonary nodule. Bilateral moderate pleural effusions, right slightly greater than left. Assessment and Plan - Diagnosis (1) Atrial fibrillation with RVR Is this a current diagnosis for this admission?: Yes Plan: I reviewed the paperwork for the experimental/investigational medication that the patient is on. She in fact takes 2 medications. 1 daily and then 1 she takes 4 days on 3 days off weekly. 1 of the reported adverse effects is cardiac arrhythmias. She requires an echocardiogram I believe every quarter or every 6 months. Her rate is still elevated. We will add digoxin and start metoprolol to wean the patient off of the diltiazem drip. Her blood pressures are marginal and even though she needs diuresis we may need to pull back on the medications. I did order a dose of albumin to try and improve her oncotic pressure well t rying to diurese with marginal blood pressures. (2) Bilateral pleural effusion Is this a current diagnosis for this admission?: Yes Plan: Secondary to the depressed ejection fraction as well as possible effects of the medications. We will try and diuresis but if not tolerated consider thoracentesis. (3) Non-small cell lung cancer Qualifiers: Laterality: unspecified laterality Qualified Code(s): C34.90 - Malignant neoplasm of unspecified part of unspecified bronchus or lung Is this a current diagnosis for this admission?: Yes (4) Transaminitis Is this a current diagnosis for this admission?: Yes Plan: Continue to monitor liver function. (5) Acute systolic (congestive) heart failure Is this a current diagnosis for this admission?: Yes Plan: In the information for the investigational trial there clearly are adverse effects for the cardiac system including arrhythmias and failure. The patient question her participation. She states that she has had good results from the malignancy standpoint and I told her to try and be positive as we treated her current illness. An echocardiogram obtained reveals an ejection fraction of only 30%. Cardiology is seeing the patient as well. We will try and diuresis keeping in mind her current blood pressures. - Time Time Spent with patient: 15-24 minutes Medications reviewed and adjusted accordingly: Yes
[2018-12-23] MEDS: ESCITALOPRAM OXALATE 10 MG TABLET PO SCH (09:57)
[2018-12-23] MEDS: METOPROLOL TARTRATE 50 MG TABLET PO SCH ×2 (09:57→23:10)
[2018-12-23] MEDS: ENOXAPARIN SODIUM INJ 80 MG/0.8 ML DISP.SYRIN SUBCUT SCH (09:57)
[2018-12-23] MEDS: DIGOXIN 0.125 MG TABLET PO SCH (09:57)
[2018-12-23] MEDS: FLUTICASONE NASAL SPRAY 50 MCG/SPRY 120 SPRAY/16 GM NASL SCH ×2 (12:39→23:10)
[2018-12-23] MEDS ORDERED: LORAZEPAM INJ 2 MG/1 ML VIAL IV PRN (14:07)
--- NOTE | 2018-12-23 14:10 | PDOC PROGRESS REPORT ---
Subjective Progress Note for:: 12/23/18 Subjective:: This is 78 years old female patient with past medical history of hypertension, depression, non-small cell lung cancer on experimental chemotherapy at [facility] presents with chief complaint of shortness of breath and palpitation. Report is that she has been her usual baseline state of health up until 7 to 10 days when she develops a sense of breath associated with palpitation. The shortness of breath is progressively worsening in the last to 72 hours it becomes severe and she came to ER for help. When she presented to the ER patient was found to be short of breath and she is in A. fib with RVR heart rates in the 180s. She has CT of the chest which is negative for pulmonary embolism but positive for moderate bilateral pleural effusion. Karl sam has been getting Cardizem drip Dr. Yin evaluated the patient and he recommended to transfer the patient to ICU. Reason For Visit: AFIB, LUNG CA Physical Exam Vital Signs: Temp Pulse Resp BP Pulse Ox 97.5 F 93 20 111/77 96 12/23/18 12:35 12/23/18 12:35 12/23/18 12:35 12/23/18 12:35 12/23/18 12:35 Intake & Output 12/22/18 12/23/18 12/24/18 06:59 06:59 06:59 Intake Total 1267 338 Balance 1267 338 Weight 80 kg 80.9 kg 80.7 kg General appearance: PRESENT: severe distress Head exam: PRESENT: atraumatic Eye exam: PRESENT: conjunctiva pink Neck exam: ABSENT: carotid bruit, JVD, lymphadenopathy, thyromegaly Respiratory exam: PRESENT: clear to auscultation jalil. ABSENT: rales, rhonchi, wheezes Cardiovascular exam: PRESENT: irregular rhythm GI/Abdominal exam: PRESENT: normal bowel sounds, soft. ABSENT: distended, guarding, mass, organolmegaly, rebound, tenderness Extremities exam: PRESENT: +1 edema Neurological exam: PRESENT: alert, awake Results Laboratory Results: 12/22/18 02:33 12/22/18 02:33 12/22/18 12/23/18 17:00 05:20 TSH 0.07 L Free T4 1.46 Free T3 pg/mL 4.13 Stool Occult Blood NEGATIVE 12/21/18 12/21/18 12/21/18 16:10 16:10 20:25 Creatine Kinase 1148 H CK-MB (CK-2) Troponin I 0.019 NT-Pro-B Natriuret Pep 1920 H 12/21/18 12/22/18 12/22/18 20:25 02:33 02:33 Creatine Kinase 1091 H CK-MB (CK-2) 23.10 H 26.80 H Troponin I 0.019 0.015 NT-Pro-B Natriuret Pep 12/22/18 12/22/18 09:20 09:20 Creatine Kinase 1090 H CK-MB (CK-2) 29.00 H Troponin I 0.017 NT-Pro-B Natriuret Pep Impressions: Chest/Abdomen CTA 12/21/18 16:57 IMPRESSION: There is no evidence of pulmonary emboli. 13 mm spiculated right pulmonary nodule. Bilateral moderate pleural effusions, right slightly greater than left. Chest X-Ray 12/23/18 00:00 IMPRESSION: 1. CENTRAL LINE APPEARS TO BE IN APPROPRIATE POSITION. NO PNEUMOTHORAX. 2. MODERATE RIGHT PLEURAL EFFUSION. Assessment and Plan - Diagnosis (1) New onset A. fib with RVR Is this a current diagnosis for this admission?: Yes Plan: We will continue current management and will comanage with Dr. Yin. (2) Hypertension Qualifiers: Hypertension type: essential hypertension Qualified Code(s): I10 - Essential (primary) hypertension Is this a current diagnosis for this admission?: Yes Plan: I will evaluate her home medication and manage her accordingly. (3) Non-small cell lung cancer Qualifiers: Laterality: unspecified laterality Qualified Code(s): C34.90 - Malignant neoplasm of unspecified part of unspecified bronchus or lung Is this a current diagnosis for this admission?: Yes Plan: Management per [place] oncology team (4) Moderate bilateral pleural effusion Is this a current diagnosis for this admission?: Yes Plan: Consult IR for thoracentesis (5) Transaminitis Is this a current diagnosis for this admission?: Yes Plan: Probably chemo related.
[2018-12-23] MEDS: MILRINONE LACTATE/D5W 20 MG/100 ML RTUINJ IV PRN (14:52)
[2018-12-23] MEDS: FUROSEMIDE INJ/PF 40 MG/4 ML SDV IV SCH ×2 (14:52→23:11)
[2018-12-23] MEDS: LORAZEPAM 0.5 MG TABLET PO SCH (23:10)
[2018-12-23] MEDS: DILTIAZEM HCL/D5W 125 MG/125 ML RTUINJ IV PRN (23:11)
[2018-12-24] MEDS: LEVALBUTEROL HCL NEB 1.25 MG/3 ML AMPUL NEB SCH ×4 (00:02→23:56)
[2018-12-24] MEDS: IPRATROPIUM BROMIDE 0.02% NEB 0.5 MG/2.5 ML AMPUL NEB SCH ×4 (00:03→23:56)
[2018-12-24] MEDS: MELATONIN 5 MG TABLET PO SCH ×2 (00:03→21:01)
[2018-12-24] MEDS: MILRINONE LACTATE/D5W 20 MG/100 ML RTUINJ IV PRN ×3 (00:26→21:53)
[2018-12-24] MEDS ORDERED: DIGOXIN INJ 0.5 MG/2 ML AMPULE IV ONE (03:00)
[2018-12-24 04:15] LABS: ABSOLUTE EOSINOPHILS # (AUTO) 0.2 10^3/uL (0.0-0.6); ABSOLUTE LYMPHOCYTES (AUTO) 0.6 10^3/uL (0.5-4.7); ABSOLUTE MONOCYTES (AUTO) 0.7 10^3/uL (0.1-1.4); ABSOLUTE NEUT (AUTO) 5.2 10^3/uL (1.7-8.2); BASOPHILS % (AUTO) 0.3 % (0-2); EOSINOPHILS % (AUTO) 2.6 % (0-6); HEMOGLOBIN 9.4 g/dL (12.0-15.5); LYMPHOCYTES % (AUTO) 8.9 % (13-45); MEAN CORPUSCULAR HEMOGLOBIN 30.4 pg (27.0-33.4); MEAN CORPUSCULAR HGB CONC 33.5 g/dL (32.0-36.0); MEAN CORPUSCULAR VOLUME 91 fl (80-97); MONOCYTES % (AUTO) 10.6 % (3-13); PLATELET COUNT 135 10^3/uL (150-450); RED BLOOD COUNT 3.09 10^6/uL (3.72-5.28); RED CELL DISTRIBUTION WIDTH 16.3 % (11.5-14.0); SEGMENTED NEUTROPHILS % (AUTO) 77.6 % (42-78); TOTAL CELLS COUNTED % (AUTO) 100 %; WHITE BLOOD COUNT 6.7 10^3/uL (4.0-10.5)
[2018-12-24 04:28] LABS: ANION GAP 6 (5-19); BLOOD UREA NITROGEN 18 mg/dL (7-20); CALCIUM 8.6 mg/dL (8.4-10.2); CARBON DIOXIDE 30 mmol/L (22-30); CHLORIDE 107 mmol/L (98-107); CREATINE KINASE 183 U/L (30-135); GLUCOSE 87 mg/dL (75-110); POTASSIUM 3.1 mmol/L (3.6-5.0); SODIUM 142.6 mmol/L (137-145)
[2018-12-24 04:40] LABS: CREATINE KINASE MB 4.41 ng/mL (<4.55)
[2018-12-24 04:42] LABS: TROPONIN I < 0.012 ng/mL
[2018-12-24] MEDS: PANTOPRAZOLE SODIUM 40 MG TABLET.DR PO SCH ×2 (06:29→17:23)
[2018-12-24] MEDS: LEVOFLOXACIN 750 MG/D5W RTU 750 MG/150 ML RTUPB IV SCH (06:29)
[2018-12-24] MEDS: FUROSEMIDE INJ/PF 40 MG/4 ML SDV IV SCH ×3 (06:37→21:00)
[2018-12-24 07:40] LABS: THYROID PEROXIDASE (TPO) AB 8 IU/mL (0-34)
[2018-12-24] MEDS: POTASSIUM CHLORIDE 20 MEQ/50 ML RTU IV SCH ×2 (08:04→10:03)
[2018-12-24] MEDS: METOPROLOL TARTRATE PF/INJ 5 MG/5 ML SDV IV PRN ×2 (08:23→17:51)
[2018-12-24] MEDS: METOPROLOL TARTRATE 50 MG TABLET PO SCH ×2 (10:10→21:01)
[2018-12-24] MEDS: ESCITALOPRAM OXALATE 10 MG TABLET PO SCH (10:10)
[2018-12-24] MEDS: DIGOXIN 0.125 MG TABLET PO SCH (10:11)
[2018-12-24] MEDS: FLUTICASONE NASAL SPRAY 50 MCG/SPRY 120 SPRAY/16 GM NASL SCH ×2 (10:15→21:00)
--- NOTE | 2018-12-24 11:04 | RADIOLOGY REPORT (SQ) ---
EXAM DESCRIPTION: CHEST SINGLE VIEW COMPLETED DATE/TIME: 12/24/2018 10:48 am REASON FOR STUDY: CHF COMPARISON: 12/23/2018 EXAM PARAMETERS: NUMBER OF VIEWS: One view. TECHNIQUE: Single frontal radiographic view of the chest acquired. RADIATION DOSE: NA LIMITATIONS: None. FINDINGS: LUNGS AND PLEURA: Right pleural effusion. Opacification in the right lower lobe. No mike k pulmonary edema. MEDIASTINUM AND HILAR STRUCTURES: No masses. Contour normal. Hiatal hernia is suggested. HEART AND VASCULAR STRUCTURES: Cardiomegaly. BONES: No acute findings. HARDWARE: Left internal jugular catheter remains in place. OTHER: No other significant finding. IMPRESSION: Cardiomegaly with no gaby pulmonary edema. Right pleural effusion. Likely right lower lobe atelectasis. TECHNICAL DOCUMENTATION: JOB ID: [id number] [employer]- All Rights Reserved Reading location - IP/workstation name: [email or web address]
--- NOTE | 2018-12-24 11:40 | PDOC PROGRESS REPORT ---
Subjective Progress Note for:: 12/24/18 Subjective:: This is 78-year-old female with a past medical history of hypertension, depression, non-small cell lung cancer on experimental chemotherapy with [facility] who initially complained of shortness of breath and palpitations. Patient was noted to be in atrial fibrillation with RVR. Chest CT was negative for PE but showed bilateral pleural effusion. She had an echocardiogram done which showed severely reduced EF global hypokinesis. She was upgraded to the ICU yesterday 12/23/18 and was started on milrinone infusion by cardiology. She was also continued on IV Lasix. Dr. Quintero pressures discussed with the child team at [place] who has recommended on h olding off on her chemotherapeutic drugs. No acute event overnight. She continues to be on milrinone infusion. Blood pressure in the high 80s systolic. She is currently in A. fib in the 110s to 12 0s. Denies chest pain or shortness of breath. Reason For Visit: AFIB, LUNG CA Physical Exam Vital Signs: Temp Pulse Resp BP Pulse Ox 99.7 F 122 H 18 92/71 L 97 12/24/18 08:00 12/24/18 10:00 12/24/18 10:00 12/24/18 10:00 12/24/18 10:00 Intake & Output 12/23/18 12/24/18 12/25/18 06:59 06:59 06:59 Intake Total 488 428 94 Output Total 5025 825 Balance 488 -4597 -731 Weight 178 lb 5.663 oz 169 lb 15.622 oz General appearance: PRESENT: no acute distress, well-developed, well-nourished Head exam: PRESENT: atraumatic, normocephalic Eye exam: PRESENT: conjunctiva pink, EOMI, PERRLA. ABSENT: scleral icterus Ear exam: PRESENT: normal external ear exam Mouth exam: PRESENT: moist, tongue midline Neck exam: ABSENT: carotid bruit, JVD, lymphadenopathy, thyromegaly Respiratory exam: PRESENT: decreased breath sounds, rhonchi. ABSENT: rales, wheezes Cardiovascular exam: PRESENT: diastolic murmur, irregular rhythm, systolic murmur, tachycardia. ABSENT: rubs Pulses: PRESENT: normal dorsalis pedis pul GI/Abdominal exam: PRESENT: normal bowel sounds, soft. ABSENT: distended, guarding, mass, organolmegaly, rebound, tenderness Rectal exam: PRESENT: deferred Neurological exam: PRESENT: alert, awake, oriented to person, oriented to place, oriented to time, oriented to situation, CN II-XII grossly intact. ABSENT: motor sensory deficit Results Laboratory Results: 12/24/18 03:55 12/24/18 03:55 12/24/18 12/24/18 03:55 03:55 WBC 6.7 RBC 3.09 L Hgb 9.4 L Hct 28.0 L MCV 91 MCH 30.4 MCHC 33.5 RDW 16.3 H Plt Count 135 L Seg Neutrophils % 77.6 Lymphocytes % 8.9 L Monocytes % 10.6 Eosinophils % 2.6 Basophils % 0.3 Absolute Neutrophils 5.2 Absolute Lymphocytes 0.6 Absolute Monocytes 0.7 Absolute Eosinophils 0.2 Absolute Basophils 0.0 Sodium 142.6 Potassium 3.1 L Chloride 107 Carbon Dioxide 30 Anion Gap 6 BUN 18 Creatinine 0.65 Est GFR ( Amer) > 60 Est GFR (Non-Af Amer) > 60 Glucose 87 Calcium 8.6 Magnesium 1.8 12/21/18 12/21/18 12/21/18 16:10 16:10 20:25 Creatine Kinase 1148 H CK-MB (CK-2) Troponin I 0.019 NT-Pro-B Natriuret Pep 1920 H 12/21/18 12/22/18 12/22/18 20:25 02:33 02:33 Creatine Kinase 1091 H CK-MB (CK-2) 23.10 H 26.80 H Troponin I 0.019 0.015 NT-Pro-B Natriuret Pep 12/22/18 12/22/18 12/24/18 09:20 09:20 03:55 Creatine Kinase 1090 H 183 H CK-MB (CK-2) 29.00 H Troponin I 0.017 NT-Pro-B Natriuret Pep 12/24/18 03:55 Creatine Kinase CK-MB (CK-2) 4.41 Troponin I < 0.012 NT-Pro-B Natriuret Pep Impressions: Chest/Abdomen CTA 12/21/18 16:57 IMPRESSION: There is no evidence of pulmonary emboli. 13 mm spiculated right pulmonary nodule. Bilateral moderate pleural effusions, right slightly greater than left. Chest X-Ray 12/24/18 00:00 IMPRESSION: Cardiomegaly with no gaby pulmonary edema. Right pleural effusion. Likely right lower lobe atelectasis. Assessment and Plan - Diagnosis (1) Acute systolic (congestive) heart failure Is this a current diagnosis for this admission?: Yes Plan: Likely chemotherapy-induced. Echo showed an EF of 30%. Cardiology following. Currently on milrinone and IV Lasix. (2) Atrial fibrillation with RVR Is this a current diagnosis for this admission?: Yes Plan: On Lovenox, Lanoxin and Lopressor. She was initially on IV Cardizem but subsequently dropped her blood pressures. (3) Bilateral pleural effusion Is this a current diagnosis for this admission?: Yes Plan: Secondary to CHF exacerbation. (4) Non-small cell lung cancer Qualifiers: Laterality: unspecified laterality Qualified Code(s): C34.90 - Malignant neoplasm of unspecified part of unspecified bronchus or lung Is this a current diagnosis for this admission?: Yes Plan: Experimental chemotherapeutic drugs held off per [facility] team recommendation. (5) Hypokalemia Is this a current diagnosis for this admission?: Yes Plan: Continue replacement. Repeat potassium later today. - Time Time Spent with patient: 25-34 minutes
[2018-12-24] MEDS: DEXTROSE 5%-WATER 250 ML with PHENYLEPHRINE HCL 40 MG IV PRN ×4 (12:15→20:47)
[2018-12-24 14:09] LABS: ANION GAP 7 (5-19); BLOOD UREA NITROGEN 17 mg/dL (7-20); CALCIUM 8.5 mg/dL (8.4-10.2); CARBON DIOXIDE 30 mmol/L (22-30); CHLORIDE 106 mmol/L (98-107); GLUCOSE 143 mg/dL (75-110); POTASSIUM 3.5 mmol/L (3.6-5.0); SODIUM 143.1 mmol/L (137-145)
[2018-12-24 14:41] LABS: THYROGLOBULIN AB SO <1.0 IU/mL (0.0-0.9)
[2018-12-24] MEDS: MIDODRINE HCL 5 MG TABLET PO SCH (17:44)
[2018-12-24 18:03] LABS: APPEARANCE,URINE CLEAR; BILIRUBIN,URINE NEGATIVE (NEGATIVE); COLOR,URINE STRAW; GLUCOSE, URINE NEGATIVE (NEGATIVE); KETONES,URINE NEGATIVE (NEGATIVE); LEUKOCYTE ESTERASE,URINE NEGATIVE (NEGATIVE); NITRITE,URINE NEGATIVE (NEGATIVE); PROTEIN,URINE NEGATIVE (NEGATIVE); UROBILINOGEN,URINE NEGATIVE mg/dL (<2.0)
[2018-12-24] MEDS: MAGNESIUM HYDROXIDE SUSP 30 ML UDCUP PO PRN (18:29)
[2018-12-24] MEDS: ACETAMINOPHEN 325 MG TABLET PO PRN (20:53)
[2018-12-24] MEDS: LORAZEPAM 0.5 MG TABLET PO SCH (21:01)
--- NOTE | 2018-12-24 22:30 | Progress Note ---
Provider Note Provider Note: CARDIOLOGY PROGRESS NOTE by Dr. Haylee Yin on 12/24/2018. Subjective: The patient denies any chest pain or discomfort. She denies any cough. There is no PND orthopnea. Her leg edema is much improved. She has good diuresis. She denies any wheezing. There is no anginal symptoms. Her heart rate was in the 100s but her Cardizem had to be stopped due to her blood pressure dropping. Subsequently the patient had to be started on Acosta-Synephrine since her blood pressure was low. There is no TIA CVA symptoms. Yesterday I did speak to the patient's son about the patient's condition. As per the hospitalist the [facility] has recommended that the patient does not need to follow-up with [facility] for now as an inpatient, but can follow as an outpatient. They want the chemotherapy to be stopped. There is no ventricular arrhythmias on the monitor. PHYSICAL EXAMINATION the patient is well-built and well-nourished. She is slightly anxious Selected Entries 12/24/18 12/24/18 12/24/18 11:08 11:09 11:50 Core 99.5 F Temperature Heart Rate ( 102 Monitors) Respiratory 23 H Rate Blood Pressure 83/62 L Blood Pressure [Upper Arm] Blood Pressure 69 64 Mean Blood Pressure Mean [Upper Arm ] O2 Sat by Pulse 97 Patient on nasal cannula 6 L/min Oximetry 12/24/18 12:00 Core Temperature Heart Rate ( Monitors) Respiratory 16 Rate Blood Pressure Blood Pressure 109/65 [Upper Arm] Subsequent point to the patient being started on Acosta-Synephrine Blood Pressure Mean Blood Pressure 79 Mean [Upper Arm ] O2 Sat by Pulse 97 Oximetry HEAD: Is atraumatic normocephalic. EYES: Pupils are equal round regular reactive to light accommodation. Extraocular movements are normal. There is no conjunctival pallor. Is no scleral icterus. EARS: Tympanic membranes are intact. External auditory canals are clear. NOSE: There is no deviated nasal septum. There is no inflammation nasal mucous membrane. MOUTH: Mucous membranes of mouth are moist. Tongue is moist. There is no ulcers. There is no bleeding from the gums. THROAT: There is no redness of the oropharynx. There is no exudates. SKIN: There is no skin lesions or skin rashes. There is no particular ecchymosis. NECK: Is supple. There is no JVD present. Carotids are equal there is no bruit. There is scar of prior thyroidectomy present. There is some diffuse enlargement of the thyroid gland. There is no lymphadenopathy. There is no accessory muscle respiration use. Trachea central. LUNGS: There is absent breath sounds in dullness in both the bases. I was not there is an area of fine rales of CHF. There is no chest wall tenderness. HEART: S1-S2 is heard. S1 is of variable intensity. There is no S3 gallop. There is no S4 gallop. There is systolic murmur left sternal border and the apex. There is murmur of severe mitral regurgitation present. With the murmur heard in the apex radiating to the left axilla. There is no aortic stenosis or aortic regurgitation murmur. There is no rub. ABDOMEN: Is obese. Nontender. There is no hepatospleno megaly. Bowel sounds well heard. EXTREMITIES: Femorals are diminished. There is no femoral bruits. Leg pulses are diminished. There is 2+ bilateral pitting edema. There is no DVT or cellulitis. There is no sinus or clubbing. There is no calf tenderness. DATA ANALYST: The patient is conscious awake alert oriented x3 with no focal deficits. PSYCHIATRIC: The patient appears to be anxious. But has judgment insight are intact. Labs- All tests 24 hr 12/23/18 12/23/18 12/24/18 05:20 05:20 03:55 WBC 6.7 RBC 3.09 L Hgb 9.4 L Hct 28.0 L MCV 91 MCH 30.4 MCHC 33.5 RDW 16.3 H Plt Count 135 L Seg Neutrophils % 77.6 Lymphocytes % 8.9 L Monocytes % 10.6 Eosinophils % 2.6 Basophils % 0.3 Absolute Neutrophils 5.2 Absolute Lymphocytes 0.6 Absolute Monocytes 0.7 Absolute Eosinophils 0.2 Absolute Basophils 0.0 Sodium Potassium Chloride Carbon Dioxide Anion Gap BUN Creatinine Est GFR ( Amer) Est GFR (Non-Af Amer) Glucose Calcium Magnesium Creatine Kinase CK-MB (CK-2) Troponin I Urine Color Urine Appearance Urine pH Ur Specific [place] Urine Protein Urine Glucose (UA) Urine Ketones Urine Blood Urine Nitrite Urine Bilirubin Urine Urobilinogen Ur Leukocyte Esterase Urine WBC (Auto) Urine RBC (Auto) U Hyaline Cast (Auto) Urine Mucus (Auto) Urine Ascorbic Acid Thyroglobulin Antibody <1.0 Thyroid Peroxidase Ab 2.90 8 12/24/18 12/24/18 12/24/18 03:55 03:55 13:30 WBC RBC Hgb Hct MCV MCH MCHC RDW Plt Count Seg Neutrophils % Lymphocytes % Monocytes % Eosinophils % Basophils % Absolute Neutrophils Absolute Lymphocytes Absolute Monocytes Absolute Eosinophils Absolute Basophils Sodium 142.6 143.1 Potassium 3.1 L 3.5 L Chloride 107 106 Carbon Dioxide 30 30 Anion Gap 6 7 BUN 18 17 Creatinine 0.65 0.67 Est GFR ( Amer) > 60 > 60 Est GFR (Non-Af Amer) > 60 > 60 Glucose 87 143 H Calcium 8.6 8.5 Magnesium 1.8 Creatine Kinase 183 H CK-MB (CK-2) 4.41 Troponin I < 0.012 Urine Color Urine Appearance Urine pH Ur Specific [place] Urine Protein Urine Glucose (UA) Urine Ketones Urine Blood Urine Nitrite Urine Bilirubin Urine Urobilinogen Ur Leukocyte Esterase Urine WBC (Auto) Urine RBC (Auto) U Hyaline Cast (Auto) Urine Mucus (Auto) Urine Ascorbic Acid Thyroglobulin Antibody Thyroid Peroxidase Ab 12/24/18 17:30 WBC RBC Hgb Hct MCV MCH MCHC RDW Plt Count Seg Neutrophils % Lymphocytes % Monocytes % Eosinophils % Basophils % Absolute Neutrophils Absolute Lymphocytes Absolute Monocytes Absolute Eosinophils Absolute Basophils Sodium Potassium Chloride Carbon Dioxide Anion Gap BUN Creatinine Est GFR ( Amer) Est GFR (Non-Af Amer) Glucose Calcium Magnesium Creatine Kinase CK-MB (CK-2) Troponin I Urine Color STRAW Urine Appearance CLEAR Urine pH 5.0 Ur Specific [place] 1.010 Urine Protein NEGATIVE Urine Glucose (UA) NEGATIVE Urine Ketones NEGATIVE Urine Blood NEGATIVE Urine Nitrite NEGATIVE Urine Bilirubin NEGATIVE Urine Urobilinogen NEGATIVE Ur Leukocyte Esterase NEGATIVE Urine WBC (Auto) 1 Urine RBC (Auto) 1 U Hyaline Cast (Auto) 4 Urine Mucus (Auto) RARE Urine Ascorbic Acid NEGATIVE Thyroglobulin Antibody Thyroid Peroxidase Ab PATIENT'S chest x-ray shows improvement with the bilateral pleural effusions left greater than right showing much less pleural fluid. The patient's 24-hour intake was 428 mL. 24-hour output is 5025 mL. IMPRESSION/RECOMMENDATION: 1. Atrial fibrillation with rapid ventricular response. Most likely the onset is about 7 to 10 days when the patient started becoming symptomatic this dyspnea on exertion and symptoms of biventricular failure. Note earlier the patient was on a IV Cardizem infusion which had to be stopped due to her blood pressure dropping. The patient did receive 1 dose of digoxin 0.25 mg intravenously. In view of the patient's heart rate tended to go to around 120 in view of the patient's soft blood pressure, will start the patient on a low-dose of Cardizem at 2.5 mg/h. To counteract the hypotensive effect of Cardizem we will start the patient on a drip containing 1 amp of calcium gluconate in the 100 mL of normal saline to run at 5 mL/h. In the meantime we will hold the patient's beta- dipak. Would also recommend full dose Lovenox's. This will temporarily held tomorrow until after the patient has a central line placed. Also would discontinue the patient's albuterol treatment, since the patient does not have any wheezing or any symptoms suggestive of reactive airway disease. See below 2. Hypertension: Patient blood pressure improved with addition of Acosta- Synephrine. Continue patient on on milrinone. We will start the patient on Midrin 5 mg p.o. 3 times daily to help bring up the patient's blood pressure. 3. Hypokalemia: Replace patient's potassium. 4.Acute systolic biventricular failure there is acute systolic right ventricular and left ventricular failure: Would recommend placing a central line on the patient and transferring the patient to ICU to start the patient on inotropic treatment. And hence will hold the patient's a.m. dose of Lovenox tomorrow morning after the central line is placed. Then will resume the patient's Lovenox. This has been discussed with the patient. She is agreeable. 5. 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 6. Severe mitral regurgitation by exam and echo: Controlling the patient's heart rate, and trying to convert the patient to sinus rhythm, and also treating the patient's heart failure most likely will improve the patient's mitral regurg. 7. At least moderate pulmonary hypertension: An inotrope such as milrinone and IV nitroglycerin might be helpful. IV nitroglycerin will be started if the bloo d pressure permits. The other option is to control the patient's heart rate with a infusion of esmolol and start the patient on a Levophed drip. Will reassess the patient in the morning. 8. At least moderate bilateral pleural effusions: Most likely secondary to patient's heart failure which is biventricular. Doubt that this is secondary to Pan stasis. 9. Past history of hypertension: At present blood pressure low. 10. History of lung cancer on experimental drug regimen protocol. Recommend oncology consult with . 11..? Thyroid status. The patient is very inconsistent with a history. She states she had ablation therapy with radioactive iodine when she was a young adult. She also states that she was diagnosed with the thyroid cancer. Subsequently she said that there was no cancer found after the thyroidectomy. Also the patient's not on replacement. Hence will check thyroid function tests 12. Anxiety: Consider antianxiety medication. MEDICATIONS reviewed. Medications added. Management plan and medication adjustment. Discussed with the hospitalist Dr. Guzman. Medical decision making is of high complexity. We will check the patient is level in the morning. 45 minutes spent with patient more than 50% of time spent in direct patient care. Will follow.
[2018-12-24 23:52] LABS: APPEARANCE,URINE CLEAR; BILIRUBIN,URINE NEGATIVE (NEGATIVE); COLOR,URINE STRAW; GLUCOSE, URINE NEGATIVE (NEGATIVE); KETONES,URINE NEGATIVE (NEGATIVE); LEUKOCYTE ESTERASE,URINE NEGATIVE (NEGATIVE); NITRITE,URINE NEGATIVE (NEGATIVE); PROTEIN,URINE NEGATIVE (NEGATIVE); URINE SPECIFIC GRAVITY 1.006; UROBILINOGEN,URINE NEGATIVE mg/dL (<2.0)
[2018-12-25] MEDS: PANTOPRAZOLE SODIUM 40 MG TABLET.DR PO SCH ×2 (05:28→18:41)
[2018-12-25] MEDS: LEVOFLOXACIN 750 MG/D5W RTU 750 MG/150 ML RTUPB IV SCH (05:28)
[2018-12-25] MEDS: FUROSEMIDE INJ/PF 40 MG/4 ML SDV IV SCH ×2 (05:29→14:22)
[2018-12-25 06:09] LABS: BLOOD UREA NITROGEN 18 mg/dL (7-20); CARBON DIOXIDE 36 mmol/L (22-30); CHLORIDE 101 mmol/L (98-107); DIGOXIN 1.14 ng/mL (0.8-2.0); GLUCOSE 101 mg/dL (75-110); POTASSIUM 3.8 mmol/L (3.6-5.0)
[2018-12-25 06:13] LABS: SODIUM 140.7 mmol/L (137-145)
[2018-12-25 06:14] LABS: ANION GAP 4 (5-19)
[2018-12-25] MEDS: DEXTROSE 5%-WATER 250 ML with PHENYLEPHRINE HCL 40 MG IV PRN ×4 (07:01→18:41)
--- NOTE | 2018-12-25 07:15 | RADIOLOGY REPORT (SQ) ---
EXAM DESCRIPTION: XR CHEST 1 VIEW COMPLETED DATE/TME: 12/25/2018 07:00 CLINICAL HISTORY: 78 years Female, reassess pleural effusion COMPARISON: One day prior. NUMBER OF VIEWS/TECHNIQUE: 1/AP FINDINGS: Bilateral lower thoracic opacity/effusion. Moderate mixed airspace and interstitial opacities. Interval worsening. Left jugular central line tip at the proximal brachiocephalic vein. Normal cardiac silhouette size. No pneumothorax. Stable bony thorax. IMPRESSION: Bilateral lower thoracic opacity/effusion. Moderate mixed airspace and interstitial opacities. Interval worsening.
[2018-12-25] MEDS: LEVALBUTEROL HCL NEB 1.25 MG/3 ML AMPUL NEB SCH ×2 (08:54→16:51)
[2018-12-25] MEDS: IPRATROPIUM BROMIDE 0.02% NEB 0.5 MG/2.5 ML AMPUL NEB SCH ×2 (08:54→16:51)
[2018-12-25] MEDS: METOPROLOL TARTRATE PF/INJ 5 MG/5 ML SDV IV PRN ×2 (09:48→18:41)
[2018-12-25] MEDS: MILRINONE LACTATE/D5W 20 MG/100 ML RTUINJ IV PRN ×2 (09:49→20:32)
[2018-12-25] MEDS: DIGOXIN 0.125 MG TABLET PO SCH (09:50)
[2018-12-25] MEDS: MIDODRINE HCL 5 MG TABLET PO SCH ×3 (09:50→18:41)
[2018-12-25] MEDS: METOPROLOL TARTRATE 50 MG TABLET PO SCH ×2 (09:50→21:29)
[2018-12-25] MEDS: ESCITALOPRAM OXALATE 10 MG TABLET PO SCH (09:50)
[2018-12-25] MEDS: FLUTICASONE NASAL SPRAY 50 MCG/SPRY 120 SPRAY/16 GM NASL SCH ×2 (09:51→21:12)
--- NOTE | 2018-12-25 11:06 | PDOC PROGRESS REPORT ---
Subjective Progress Note for:: 12/25/18 Subjective:: This is 78-year-old female with a past medical history of hypertension, depression, non-small cell lung cancer on experimental chemotherapy with [facility] who initially complained of shortness of breath and palpitations. Patient was noted to be in atrial fibrillation with RVR. Chest CT was negative for PE but showed bilateral pleural effusion. She had an echocardiogram done which showed severely reduced EF global hypokinesis. She was upgraded to the ICU yesterday 12/23/18 and was started on milrinone infusion by cardiology. She was also continued on IV Lasix. Dr. Holliday discussed with the oncology trial team at [place] who has recommended on holding off on her chemotherapeutic drugs. 12/24: She continues to be on milrinone infusion. Blood pressure in the high 80s systolic. She is currently in A. fib in the 110s to 120s. Denies chest pain or shortness of breath. 12/25: No acute event overnight. She denies chest pain or shortness of breath. Saturating well on nasal cannula. Currently on milrinone infusion. Neosynephrine drip added by cardiology. HR in the 110s, BP at 85/60s. Reason For Visit: AFIB, LUNG CA Physical Exam Vital Signs: Temp Pulse Resp BP Pulse Ox 99.5 F 117 H 16 113/77 97 12/25/18 03:38 12/25/18 08:56 12/25/18 08:56 12/25/18 06:07 12/25/18 08:56 Intake & Output 12/24/18 12/25/18 12/26/18 06:59 06:59 06:59 Intake Total 428 1071 250 Output Total 5028 3900 Balance -0571 -2816 250 Weight 169 lb 15.622 oz 171 lb 1.259 oz General appearance: PRESENT: no acute distress, well-developed, well-nourished Head exam: PRESENT: atraumatic, normocephalic Eye exam: PRESENT: conjunctiva pink, EOMI, PERRLA. ABSENT: scleral icterus Ear exam: PRESENT: normal external ear exam Mouth exam: PRESENT: moist, tongue midline Neck exam: ABSENT: carotid bruit, JVD, lymphadenopathy, thyromegaly Respiratory exam: PRESENT: decreased breath sounds. ABSENT: rales, rhonchi, wheezes Cardiovascular exam: PRESENT: irregular rhythm, tachycardia - [address] Pulses: PRESENT: normal dorsalis pedis pul GI/Abdominal exam: PRESENT: normal bowel sounds, soft. ABSENT: distended, guarding, mass, organolmegaly, rebound, tenderness Rectal exam: PRESENT: deferred Neurological exam: PRESENT: alert - [id number], awake, oriented to person, oriented to place, oriented to time, oriented to situation, CN II-XII grossly intact. ABSENT: motor sensory deficit Results Laboratory Results: 12/24/18 03:55 12/25/18 05:25 12/24/18 12/24/18 12/24/18 13:30 17:30 23:30 Sodium 143.1 Potassium 3.5 L Chloride 106 Carbon Dioxide 30 Anion Gap 7 BUN 17 Creatinine 0.67 Est GFR ( Amer) > 60 Est GFR (Non-Af Amer) > 60 Glucose 143 H Calcium 8.5 Urine Color STRAW STRAW Urine Appearance CLEAR CLEAR Urine pH 5.0 6.0 Ur Specific [place] 1.010 1.006 Urine Protein NEGATIVE NEGATIVE Urine Glucose (UA) NEGATIVE NEGATIVE Urine Ketones NEGATIVE NEGATIVE Urine Blood NEGATIVE NEGATIVE Urine Nitrite NEGATIVE NEGATIVE Ur Leukocyte Esterase NEGATIVE NEGATIVE Urine WBC (Auto) 1 1 Urine RBC (Auto) 1 1 12/25/18 05:25 Sodium 140.7 Potassium 3.8 Chloride 101 Carbon Dioxide 36 H Anion Gap 4 L BUN 18 Creatinine 0.65 Est GFR ( Amer) > 60 Est GFR (Non-Af Amer) > 60 Glucose 101 Calcium 9.0 Urine Color Urine Appearance Urine pH Ur Specific [place] Urine Protein Urine Glucose (UA) Urine Ketones Urine Blood Urine Nitrite Ur Leukocyte Esterase Urine WBC (Auto) Urine RBC (Auto) 12/21/18 12/21/18 12/21/18 16:10 16:10 20:25 Creatine Kinase 1148 H CK-MB (CK-2) Troponin I 0.019 NT-Pro-B Natriuret Pep 1920 H 12/21/18 12/22/18 12/22/18 20:25 02:33 02:33 Creatine Kinase 1091 H CK-MB (CK-2) 23.10 H 26.80 H Troponin I 0.019 0.015 NT-Pro-B Natriuret Pep 12/22/18 12/22/18 12/24/18 09:20 09:20 03:55 Creatine Kinase 1090 H 183 H CK-MB (CK-2) 29.00 H Troponin I 0.017 NT-Pro-B Natriuret Pep 12/24/18 03:55 Creatine Kinase CK-MB (CK-2) 4.41 Troponin I < 0.012 NT-Pro-B Natriuret Pep Impressions: Chest/Abdomen CTA 12/21/18 16:57 IMPRESSION: There is no evidence of pulmonary emboli. 13 mm spiculated right pulmonary nodule. Bilateral moderate pleural effusions, right slightly greater than left. Chest X-Ray 12/25/18 07:00 IMPRESSION: Bilateral lower thoracic opacity/effusion. Moderate mixed airspace and interstitial opacities. Interval worsening. Assessment and Plan - Diagnosis (1) Acute systolic (congestive) heart failure Is this a current diagnosis for this admission?: Yes Plan: Likely chemotherapy-induced. Echo showed an EF of 30%. Cardiology following. Currently on milrinone and IV Lasix. 12/25: Currently on milrinone infusion. Neosynephrine drip added by cardiology. HR in the 110s, BP at 85/60s. Continue Lasix and lopressor. Cardizem drip on hold. (2) Atrial fibrillation with RVR Is this a current diagnosis for this admission?: Yes Plan: On Lovenox, Lanoxin and Lopressor. She was initially on IV Cardizem but subsequently dropped her blood pressures. (3) Bilateral pleural effusion Is this a current diagnosis for this admission?: Yes Plan: Secondary to CHF exacerbation. Continue Lasix. Repeat [id number] (4) Non-small cell lung cancer Qualifiers: Laterality: unspecified laterality Qualified Code(s): C34.90 - Malignant neoplasm of unspecified part of unspecified bronchus or lung Is this a current diagnosis for this admission?: Yes Plan: Experimental chemotherapeutic drugs held off per [facility] team recommendation. (5) Hypokalemia Is this a current diagnosis for this admission?: Yes Plan: Continue replacement. Repeat potassium later today. 12/25: Resolved. - Time Time Spent with patient: 25-34 minutes
--- NOTE | 2018-12-25 11:07 | ADVANCED CARE ---
- Diagnosis (1) Acute systolic (congestive) heart failure Diagnosis Current: Yes (2) Atrial fibrillation with RVR Diagnosis Current: Yes (3) Bilateral pleural effusion Diagnosis Current: Yes (4) Non-small cell lung cancer Diagnosis Current: Yes (5) Hypokalemia Diagnosis Current: Yes Resuscitation Status: Full Code Discussion: Discussed with patient if she has specific advanced directives. She verbalized that she wants to be full code at this time and prefers just compressions, defibrillation or mechanical ventilation if needed. She says her is her surrogate medical decision maker. She does express she would want to further rediscuss her advanced directive later with her .
[2018-12-25] MEDS ORDERED: SODIUM CHLORIDE IV PRN (13:35)
[2018-12-25] MEDS ORDERED: ESMOLOL IV PRN (13:35)
[2018-12-25] MEDS: ESMOLOL 2500 MG/NS 250 ML IV PRN ×4 (14:17→23:58)
[2018-12-25] MEDS: MELATONIN 5 MG TABLET PO SCH (21:11)
[2018-12-25] MEDS: LORAZEPAM 0.5 MG TABLET PO SCH (21:11)
[2018-12-26] MEDS: IPRATROPIUM BROMIDE 0.02% NEB 0.5 MG/2.5 ML AMPUL NEB SCH ×3 (00:25→16:43)
[2018-12-26] MEDS: LEVALBUTEROL HCL NEB 1.25 MG/3 ML AMPUL NEB SCH ×3 (00:26→16:43)
[2018-12-26] MEDS ORDERED: ESMOLOL HCL IV ONE (01:04)
[2018-12-26] MEDS ORDERED: SODIUM CHLORIDE IV ONE (01:04)
[2018-12-26] MEDS: ESMOLOL 2500 MG/NS 250 ML IV PRN ×8 (02:48→20:55)
[2018-12-26] MEDS: PANTOPRAZOLE SODIUM 40 MG TABLET.DR PO SCH ×2 (05:13→16:34)
[2018-12-26] MEDS: LEVOFLOXACIN 750 MG/D5W RTU 750 MG/150 ML RTUPB IV SCH (05:13)
[2018-12-26 05:58] LABS: BLOOD UREA NITROGEN 14 mg/dL (7-20); CALCIUM 8.5 mg/dL (8.4-10.2); GLUCOSE 139 mg/dL (75-110); POTASSIUM 3.7 mmol/L (3.6-5.0)
[2018-12-26 06:03] LABS: CARBON DIOXIDE 32 mmol/L (22-30); CHLORIDE 103 mmol/L (98-107); SODIUM 155.8 mmol/L (137-145)
[2018-12-26 06:08] LABS: ANION GAP 21 (5-19)
[2018-12-26] MEDS: DEXTROSE 5%-WATER 250 ML with PHENYLEPHRINE HCL 40 MG IV PRN ×4 (07:53→18:59)
[2018-12-26] MEDS: MILRINONE LACTATE/D5W 20 MG/100 ML RTUINJ IV PRN ×2 (08:42→20:31)
[2018-12-26] MEDS: METOPROLOL TARTRATE PF/INJ 5 MG/5 ML SDV IV PRN (08:45)
--- NOTE | 2018-12-26 09:29 | RADIOLOGY REPORT (SQ) ---
EXAM DESCRIPTION: CHEST SINGLE VIEW COMPLETED DATE/TIME: 12/26/2018 9:07 am REASON FOR STUDY: effusion COMPARISON: 12/25/2018 NUMBER OF VIEWS: One view. TECHNIQUE: Single frontal radiographic image of the chest acquired. LIMITATIONS: None. FINDINGS: LUNGS AND PLEURA: Bilateral pleural effusions and airspace disease with improved aeration in the right lung. No pneumothorax. MEDIASTINUM AND HEART: Stable heart size and mediastinal structures. SUPPORT DEVICES: Appropriate location without change. BONY STRUCTURES: No acute findings. HARDWARE: None. OTHER: No other significant finding. IMPRESSION: Improved aeration in the right lung. Reading location - IP/workstation name: [email or web address]
--- NOTE | 2018-12-26 10:22 | PDOC PROGRESS REPORT ---
Subjective Progress Note for:: 12/26/18 Subjective:: This is 78-year-old female with a past medical history of hypertension, depression, non-small cell lung cancer on experimental chemotherapy with [facility] who initially complained of shortness of breath and palpitations. Patient was noted to be in atrial fibrillation with RVR. Chest CT was negative for PE but showed bilateral pleural effusion. She had an echocardiogram done which showed severely reduced EF global hypokinesis. She was upgraded to the ICU yesterday 12/23/18 and was started on milrinone infusion by cardiology. She was also continued on IV Lasix. Dr. Holliday discussed with the oncology trial team at [facility] who has recommended on holding off on her chemotherapeutic drugs. 12/24: She continues to be on milrinone infusion. Blood pressure in the high 80s systolic. She is currently in A. fib in the 110s to 120s. Denies chest pain or shortness of breath. 12/25: She denies chest pain or shortness of breath. Saturating well on nasal cannula. Currently on milrinone infusion. Neosynephrine drip added by cardiology. HR in the 110s, BP at 85/60s. 12/26: No acute event overnight. She says he continues to feel better. No chest pain or cute SOB. Chest x-ray this morning shows significant improvement of the pleural effusion. Lasix has been discontinued by cardiology. Esmolol drip was started yesterday. She continues to be on milrinone and Acosta-Synephrine drips. Daughter on bedside and updated about findings. Reason For Visit: AFIB, LUNG CA Physical Exam Vital Signs: Temp Pulse Resp BP Pulse Ox 99.5 F 106 H 17 122/82 95 12/25/18 03:38 12/26/18 08:11 12/26/18 09:16 12/26/18 09:16 12/26/18 09:16 Intake & Output 12/25/18 12/26/18 12/27/18 06:59 06:59 06:59 Intake Total 1071 2301 Output Total 3900 3425 400 Balance -2829 -1124 -400 Weight 171 lb 1.259 oz 162 lb 11.218 oz General appearance: PRESENT: no acute distress, well-developed, well-nourished Head exam: PRESENT: atraumatic, normocephalic Eye exam: PRESENT: conjunctiva pink, EOMI, PERRLA. ABSENT: scleral icterus Ear exam: PRESENT: normal external ear exam Mouth exam: PRESENT: moist, tongue midline Neck exam: ABSENT: carotid bruit, JVD, lymphadenopathy, thyromegaly Respiratory exam: PRESENT: decreased breath sounds, rhonchi. ABSENT: rales, wh eezes Cardiovascular exam: PRESENT: irregular rhythm, tachycardia. ABSENT: diastolic murmur, rubs Pulses: PRESENT: normal dorsalis pedis pul GI/Abdominal exam: PRESENT: normal bowel sounds, soft. ABSENT: distended, guarding, mass, organolmegaly, rebound, tenderness Rectal exam: PRESENT: deferred Neurological exam: PRESENT: alert, awake, oriented to person, oriented to place, oriented to time, oriented to situation, CN II-XII grossly intact. ABSENT: motor sensory deficit Results Laboratory Results: 12/24/18 03:55 12/26/18 05:26 12/26/18 05:26 Sodium 155.8 H Potassium 3.7 Chloride 103 Carbon Dioxide 32 H Anion Gap 21 H BUN 14 Creatinine 0.48 L Est GFR ( Amer) > 60 Est GFR (Non-Af Amer) > 60 Glucose 139 H Calcium 8.5 Magnesium 2.0 12/21/18 12/21/18 12/21/18 16:10 16:10 20:25 Creatine Kinase 1148 H CK-MB (CK-2) Troponin I 0.019 NT-Pro-B Natriuret Pep 1920 H 12/21/18 12/22/18 12/22/18 20:25 02:33 02:33 Creatine Kinase 1091 H CK-MB (CK-2) 23.10 H 26.80 H Troponin I 0.019 0.015 NT-Pro-B Natriuret Pep 12/22/18 12/22/18 12/24/18 09:20 09:20 03:55 Creatine Kinase 1090 H 183 H CK-MB (CK-2) 29.00 H Troponin I 0.017 NT-Pro-B Natriuret Pep 12/24/18 03:55 Creatine Kinase CK-MB (CK-2) 4.41 Troponin I < 0.012 NT-Pro-B Natriuret Pep Impressions: Chest/Abdomen CTA 12/21/18 16:57 IMPRESSION: There is no evidence of pulmonary emboli. 13 mm spiculated right pulmonary nodule. Bilateral moderate pleural effusions, right slightly greater than left. Chest X-Ray 12/26/18 00:00 IMPRESSION: Improved aeration in the right lung. Assessment and Plan - Diagnosis (1) Acute systolic (congestive) heart failure Is this a current diagnosis for this admission?: Yes Plan: Likely chemotherapy-induced. Echo showed an EF of 30%. Cardiology following. Currently on milrinone and IV Lasix. 12/25: Currently on milrinone infusion. Neosynephrine drip added by cardiology. HR in the 110s, BP at 85/60s. Continue Lasix and lopressor. Cardizem drip on hold. 12/26: Improving. Chest x-ray this morning shows significant improvement of the pleural effusion. Lasix has been discontinued by cardiology. Esmolol drip was started yesterday. She continues to be on milrinone and Acosta-Synephrine drips. (2) Atrial fibrillation with RVR Is this a current diagnosis for this admission?: Yes Plan: On Lovenox, Lanoxin and Lopressor. She was initially on IV Cardizem but subsequently dropped her blood pressures. (3) Bilateral pleural effusion Is this a current diagnosis for this admission?: Yes Plan: Secondary to CHF exacerbation. Continue Lasix. 12/26: Significantly improved on today's chest x-ray. Lasix DCed by cardio. (4) Non-small cell lung cancer Qualifiers: Laterality: unspecified laterality Qualified Code(s): C34.90 - Malignant neoplasm of unspecified part of unspecified bronchus or lung Is this a current diagnosis for this admission?: Yes Plan: Experimental chemotherapeutic drugs held off per [facility] team recommendation. (5) Hypokalemia Is this a current diagnosis for this admission?: Yes Plan: Continue replacement. Repeat potassium later today. 12/25: Resolved. - Time Time Spent with patient: 25-34 minutes
[2018-12-26] MEDS: FLUTICASONE NASAL SPRAY 50 MCG/SPRY 120 SPRAY/16 GM NASL SCH ×2 (11:27→21:07)
[2018-12-26] MEDS: DIGOXIN 0.125 MG TABLET PO SCH (11:27)
[2018-12-26] MEDS: METOPROLOL TARTRATE 50 MG TABLET PO SCH ×2 (11:28→21:07)
[2018-12-26] MEDS: MIDODRINE HCL 5 MG TABLET PO SCH ×3 (11:28→18:31)
[2018-12-26] MEDS: ESCITALOPRAM OXALATE 10 MG TABLET PO SCH (11:28)
[2018-12-26 18:54] LABS: ABSOLUTE EOSINOPHILS # (AUTO) 0.2 10^3/uL (0.0-0.6); ABSOLUTE LYMPHOCYTES (AUTO) 0.7 10^3/uL (0.5-4.7); ABSOLUTE NEUT (AUTO) 5.6 10^3/uL (1.7-8.2); BASOPHILS % (AUTO) 0.3 % (0-2); EOSINOPHILS % (AUTO) 2.3 % (0-6); HEMATOCRIT 30.8 % (36.0-47.0); HEMOGLOBIN 10.3 g/dL (12.0-15.5); MEAN CORPUSCULAR HEMOGLOBIN 30.2 pg (27.0-33.4); MEAN CORPUSCULAR HGB CONC 33.4 g/dL (32.0-36.0); MEAN CORPUSCULAR VOLUME 91 fl (80-97); MONOCYTES % (AUTO) 13.1 % (3-13); PLATELET COUNT 142 10^3/uL (150-450); RED CELL DISTRIBUTION WIDTH 16.4 % (11.5-14.0); SEGMENTED NEUTROPHILS % (AUTO) 75.3 % (42-78); TOTAL CELLS COUNTED % (AUTO) 100 %; WHITE BLOOD COUNT 7.4 10^3/uL (4.0-10.5)
[2018-12-26 19:15] LABS: ANION GAP 10 (5-19); BLOOD UREA NITROGEN 11 mg/dL (7-20); CALCIUM 8.1 mg/dL (8.4-10.2); CARBON DIOXIDE 29 mmol/L (22-30); CHLORIDE 105 mmol/L (98-107); GLUCOSE 174 mg/dL (75-110); POTASSIUM 3.7 mmol/L (3.6-5.0); SODIUM 144.1 mmol/L (137-145)
[2018-12-26] MEDS: LORAZEPAM 0.5 MG TABLET PO SCH (21:07)
[2018-12-26] MEDS: MELATONIN 5 MG TABLET PO SCH (22:46)
[2018-12-26] MEDS: ENOXAPARIN SODIUM INJ 80 MG/0.8 ML DISP.SYRIN SUBCUT SCH (22:51)
[2018-12-27] MEDS: IPRATROPIUM BROMIDE 0.02% NEB 0.5 MG/2.5 ML AMPUL NEB SCH ×3 (00:18→16:56)
[2018-12-27] MEDS: LEVALBUTEROL HCL NEB 1.25 MG/3 ML AMPUL NEB SCH ×3 (00:18→16:56)
[2018-12-27] MEDS: ESMOLOL 2500 MG/NS 250 ML IV PRN (00:44)
[2018-12-27 05:41] LABS: APPEARANCE,URINE CLEAR; BILIRUBIN,URINE NEGATIVE (NEGATIVE); COLOR,URINE YELLOW; GLUCOSE, URINE NEGATIVE (NEGATIVE); KETONES,URINE NEGATIVE (NEGATIVE); LEUKOCYTE ESTERASE,URINE NEGATIVE (NEGATIVE); NITRITE,URINE NEGATIVE (NEGATIVE); PROTEIN,URINE 30 mg/dL (NEGATIVE); URINE SPECIFIC GRAVITY 1.018; UROBILINOGEN,URINE NEGATIVE mg/dL (<2.0)
[2018-12-27 05:48] LABS: ANION GAP 5 (5-19); BLOOD UREA NITROGEN 9 mg/dL (7-20); CARBON DIOXIDE 28 mmol/L (22-30); CHLORIDE 109 mmol/L (98-107); GLUCOSE 133 mg/dL (75-110); POTASSIUM 3.4 mmol/L (3.6-5.0); SODIUM 141.8 mmol/L (137-145)
[2018-12-27] MEDS: PANTOPRAZOLE SODIUM 40 MG TABLET.DR PO SCH ×2 (05:55→17:38)
[2018-12-27] MEDS: ACETAMINOPHEN 325 MG TABLET PO PRN ×2 (08:27→21:21)
[2018-12-27] MEDS: MILRINONE LACTATE/D5W 20 MG/100 ML RTUINJ IV PRN (08:27)
--- NOTE | 2018-12-27 08:40 | PDOC CONSULTATION ---
Consultation Consult Date: 12/27/18 Attending physician:: ELMER LEWIS Provider Consulted: GUSTAVO BHATTI Consult reason:: Patient with stage IV non-small cell lung cancer here with heart failure new onset, on clinical trial at [facility] History of Present Illness Admission Date/PCP: 12/21/18 20:14 MARAL KING Patient complains of: Shortness of breath, weakness History of Present Illness: LESLYE BLANDON is a 78 year old female who has been on clinical trial, phase 2 clinical trial. She has history of stage IV EGFR mutated non-small cell lung cancer. She has been on Osimertinib and Selumetinib which is combination EGFR inhibitor + MEK inhibitor. She presents with shortness of breath, weakness, ultimately was found to have bilateral pleural effusions. In discussion with the patient, her sites of disease was nodules in bilateral lung as well as cervical adenopathy. On most recent imaging done through [facility], she has been seeing Dr. Jose David Dawn, it was noted that she had improved disease. On CTA of the chest done here there is only a single pulmonary nodule noted along with bilateral pleural effusions. She had echocardiogram indicating EF of only 30%. She has been on cardiac drips to this point. Past Medical History Cardiac Medical History: Reports: Atrial Fibrillation, Hypertension Malignancy Medical History: Reports: Other - Stage IV lung cancer on clinical trial [facility], phase 2 clinical tr Psychiatric Medical History: Reports: Depression Past Surgical History Past Surgical History: Reports: Hysterectomy Social History Information Source: Patient Smoking Status: Never Smoker Frequency of Alcohol Use: None Drugs: None Hx Prescription Drug Abuse: No - Advance Directive Resuscitation Status: Full Code Family History Family History: Hypertension Parental Family History Reviewed: Yes Children Family History Reviewed: Yes Sibling(s) Family History Reviewed.: Yes Medication/Allergy Home Medications: Calcium Carbonate/Vitamin D3 [Calcium 600-Vit D3 800 Caplet] 1 tab PO DAILY 12/21/18 Escitalopram Oxalate [Lexapro 10 mg Tablet] 10 mg PO DAILY 12/21/18 Flaxseed Oil [Flax Seed Oil] 1,000 mg PO DAILY 12/21/18 Gluc Avila/Chondro Avila A/Vit C/Mn [Glucosamine Complex Capsule] 1 cap PO DAILY 12/21/18 Lisinopril [Prinivil 10 mg Tablet] 10 mg PO DAILY 12/21/18 Loratadine [Claritin 10 mg Tablet] 10 mg PO DAILY 12/21/18 Lorazepam [Ativan 0.5 mg Tablet] 0.5 mg PO QHS 12/21/18 Melatonin [Melatonin 5 mg Tablet] 5 mg PO QHS 12/21/18 Meloxicam [Mobic] 15 mg PO DAILY 12/21/18 Multivit-Min/Iron/Folic/Lutein [Multivitamin Women 50 Plus Tab] 1 tab PO DAILY 12/21/18 Salol-3 Fatty Acids/Fish Oil [Eql Fish Oil 1,200 mg Softgel] 1 cap PO DAILY 12/21/18 Osimertinib Mesylate [Tagrisso] 80 mg PO DAILY 12/21/18 Oxycodone HCl [Oxy-Ir 5 mg Tablet] 5 mg PO Q4HP PRN 12/21/18 Prochlorperazine Maleate [Compazine 10 mg Tablet] 10 mg PO Q6HP PRN 12/21/18 Selumetinib 75 mg PO BID 12/21/18 Allergies/Adverse Reactions: Sulfa (Sulfonamide Antibiotics) Allergy (Verified 12/21/18 17:01) Review of Systems Constitutional: ABSENT: chills, fever(s), headache(s), weight gain, weight loss Eyes: ABSENT: visual disturbances Ears: ABSENT: hearing changes Cardiovascular: ABSENT: chest pain, dyspnea on exertion, edema, orthropnea, palpitations Respiratory: ABSENT: cough, hemoptysis Gastrointestinal: ABSENT: abdominal pain, constipation, diarrhea, hematemesis, hematochezia, nausea, vomiting Genitourinary: ABSENT: dysuria, hematuria Musculoskeletal: ABSENT: joint swelling Integumentary: ABSENT: rash, wounds Neurological: ABSENT: abnormal gait, abnormal speech, confusion, dizziness, focal weakness, syncope Psychiatric: ABSENT: anxiety, depression, homidical ideation, suicidal ideation Endocrine: ABSENT: cold intolerance, heat intolerance, polydipsia, polyuria Hematologic/Lymphatic: ABSENT: easy bleeding, easy bruising Physical Exam Vital Signs: Temp Pulse Resp BP Pulse Ox 99.9 F 98 22 H 105/71 99 12/26/18 20:00 12/27/18 00:21 12/27/18 08:08 12/27/18 08:08 12/27/18 08:08 Intake & Output 12/26/18 12/27/18 12/28/18 06:59 06:59 06:59 Intake Total 2301 2912 100 Output Total 3425 2175 Balance -1124 737 100 Weight 73.8 kg 76.6 kg General appearance: PRESENT: no acute distress, well-developed, well-nourished Head exam: PRESENT: atraumatic, normocephalic Eye exam: PRESENT: conjunctiva pink, EOMI, PERRLA. ABSENT: scleral icterus Ear exam: PRESENT: normal external ear exam Mouth exam: PRESENT: moist, tongue midline Neck exam: ABSENT: carotid bruit, JVD, lymphadenopathy, thyromegaly Respiratory exam: PRESENT: clear to auscultation jalil. ABSENT: rales, rhonchi, wheezes Cardiovascular exam: PRESENT: RRR. ABSENT: diastolic murmur, rubs, systolic murmur Pulses: PRESENT: normal dorsalis pedis pul Vascular exam: PRESENT: normal capillary refill GI/Abdominal exam: PRESENT: normal bowel sounds, soft. ABSENT: distended, guarding, mass, organolmegaly, rebound, tenderness Rectal exam: PRESENT: deferred Extremities exam: PRESENT: full ROM. ABSENT: calf tenderness, clubbing, pedal edema Neurological exam: PRESENT: alert, awake, oriented to person, oriented to place, oriented to time, oriented to situation, CN II-XII grossly intact. ABSENT: motor sensory deficit Psychiatric exam: PRESENT: appropriate affect, normal mood. ABSENT: homicidal ideation, suicidal ideation Skin exam: PRESENT: dry, intact, warm. ABSENT: cyanosis, rash Results Laboratory Results: 12/26/18 18:05 12/27/18 05:15 12/26/18 12/26/18 12/27/18 18:05 18:05 05:15 WBC 7.4 RBC 3.40 L Hgb 10.3 L Hct 30.8 L MCV 91 MCH 30.2 MCHC 33.4 RDW 16.4 H Plt Count 142 L Seg Neutrophils % 75.3 Lymphocytes % 9.0 L Monocytes % 13.1 H Eosinophils % 2.3 Basophils % 0.3 Absolute Neutrophils 5.6 Absolute Lymphocytes 0.7 Absolute Monocytes 1.0 Absolute Eosinophils 0.2 Absolute Basophils 0.0 Sodium 144.1 141.8 Potassium 3.7 3.4 L Chloride 105 109 H Carbon Dioxide 29 28 Anion Gap 10 5 BUN 11 9 Creatinine 0.46 L 0.42 L Est GFR ( Amer) > 60 > 60 Est GFR (Non-Af Amer) > 60 > 60 Glucose 174 H 133 H Calcium 8.1 L 8.0 L Magnesium 1.8 Urine Color Urine Appearance Urine pH Ur Specific [place] Urine Protein Urine Glucose (UA) Urine Ketones Urine Blood Urine Nitrite Ur Leukocyte Esterase Urine WBC (Auto) Urine RBC (Auto) 12/27/18 05:15 WBC RBC Hgb Hct MCV MCH MCHC RDW Plt Count Seg Neutrophils % Lymphocytes % Monocytes % Eosinophils % Basophils % Absolute Neutrophils Absolute Lymphocytes Absolute Monocytes Absolute Eosinophils Absolute Basophils Sodium Potassium Chloride Carbon Dioxide Anion Gap BUN Creatinine Est GFR ( Amer) Est GFR (Non-Af Amer) Glucose Calcium Magnesium Urine Color YELLOW Urine Appearance CLEAR Urine pH 6.0 Ur Specific [place] 1.018 Urine Protein 30 H Urine Glucose (UA) NEGATIVE Urine Ketones NEGATIVE Urine Blood SMALL H Urine Nitrite NEGATIVE Ur Leukocyte Esterase NEGATIVE Urine WBC (Auto) 4 Urine RBC (Auto) 14 12/21/18 12/21/18 12/21/18 16:10 16:10 20:25 Creatine Kinase 1148 H CK-MB (CK-2) Troponin I 0.019 NT-Pro-B Natriuret Pep 1920 H 12/21/18 12/22/18 12/22/18 20:25 02:33 02:33 Creatine Kinase 1091 H CK-MB (CK-2) 23.10 H 26.80 H Troponin I 0.019 0.015 NT-Pro-B Natriuret Pep 12/22/18 12/22/18 12/24/18 09:20 09:20 03:55 Creatine Kinase 1090 H 183 H CK-MB (CK-2) 29.00 H Troponin I 0.017 NT-Pro-B Natriuret Pep 12/24/18 03:55 Creatine Kinase CK-MB (CK-2) 4.41 Troponin I < 0.012 NT-Pro-B Natriuret Pep Impressions: Chest/Abdomen CTA 12/21/18 16:57 IMPRESSION: There is no evidence of pulmonary emboli. 13 mm spiculated right pulmonary nodule. Bilateral moderate pleural effusions, right slightly greater than left. Status: Image reviewed by me Assessment & Plan - Diagnosis (1) Acute systolic (congestive) heart failure Is this a current diagnosis for this admission?: Yes Plan: Agree that it can be secondary to her clinical trial agents, probably the Osimertinib, which has blockade of EGFR but also does have some blockade of the HER-2 pathway. It is known that her 2 therapies do cause heart failure. Continue per cardiology and primary team and treatment of this. (2) Non-small cell lung cancer Qualifiers: Laterality: right Qualified Code(s): C34.91 - Malignant neoplasm of unspecified part of right bronchus or lung Is this a current diagnosis for this admission?: Yes Plan: Stage IV non-small cell lung cancer, on clinical trial, all clinical trial agents will be held while patient is remaining in heart failure, EF asked to improve and then [facility] is to decide whether it is warranted for her to restart any of the agents. I will be in contact with Dr. Dawn to let them know was going on. - Time Time Spent: Greater than 70 Minutes
--- NOTE | 2018-12-27 09:02 | RADIOLOGY REPORT (SQ) ---
EXAM DESCRIPTION: CHEST SINGLE VIEW COMPLETED DATE/TIME: 12/27/2018 8:38 am REASON FOR STUDY: reassess effusion COMPARISON: 12/26/2018 EXAM PARAMETERS: NUMBER OF VIEWS: One view. TECHNIQUE: Single frontal radiographic view of the chest acquired. RADIATION DOSE: NA LIMITATIONS: None. FINDINGS: LUNGS AND PLEURA: Interval improvement in the lungs since the prior study. The airspace disease in the right lower lung has decreased. Decreased since size of the right pleural effusion wi th small right pleural effusion remaining. Slight decrease in the airspace disease in the left lower lung. No pneumothorax. MEDIASTINUM AND HILAR STRUCTURES: No masses. Contour normal. HEART AND VASCULAR STRUCTURES: Stable appearance. BONES: No acute findings. HARDWARE: Stable left central venous line. OTHER: No other significant finding. IMPRESSION: 1. Since the prior study dated 12/26/2018, decrease in the right lower lung airspace dise ase. The right pleural effusion has also decreased with small right pleural effusion remaining. 2. Slight decrease in the left lower lung airspace disease. TECHNICAL DOCUMENTATION: JOB ID: [id number] [employer]- All Rights Reserved Reading location - IP/workstation name: [email or web address]
[2018-12-27] MEDS: DIGOXIN 0.125 MG TABLET PO SCH (09:29)
[2018-12-27] MEDS: METOPROLOL TARTRATE 50 MG TABLET PO SCH ×2 (09:29→21:05)
[2018-12-27] MEDS: ESCITALOPRAM OXALATE 10 MG TABLET PO SCH (09:29)
[2018-12-27] MEDS: MIDODRINE HCL 5 MG TABLET PO SCH ×3 (09:29→17:38)
[2018-12-27] MEDS: FLUTICASONE NASAL SPRAY 50 MCG/SPRY 120 SPRAY/16 GM NASL SCH ×2 (09:30→21:08)
[2018-12-27] MEDS: ENOXAPARIN SODIUM INJ 80 MG/0.8 ML DISP.SYRIN SUBCUT SCH ×2 (09:30→21:06)
[2018-12-27] MEDS ORDERED: POTASSIUM CHLORIDE 10 MEQ CAPSULE.ER PO ONE ×3 (10:59→14:28)
--- NOTE | 2018-12-27 10:59 | PDOC PROGRESS REPORT ---
Subjective Progress Note for:: 12/27/18 Subjective:: This is 78-year-old female with a past medical history of hypertension, depression, non-small cell lung cancer on experimental chemotherapy with [facility] who initially complained of shortness of breath and palpitations. Patient was noted to be in atrial fibrillation with RVR. Chest CT was negative for PE but showed bilateral pleural effusion. She had an echocardiogram done which showed severely reduced EF global hypokinesis. She was upgraded to the ICU yesterday 12/23/18 and was started on milrinone infusion by cardiology. She was also continued on IV Lasix. Dr. Holliday discussed with the oncology trial team at [place] who has recommended on holding off on her chemotherapeutic drugs. 12/24: She continues to be on milrinone infusion. Blood pressure in the high 80s systolic. She is currently in A. fib in the 110s to 120s. Denies chest pain or shortness of breath. 12/25: She denies chest pain or shortness of breath. Saturating well on nasal cannula. Currently on milrinone infusion. Neosynephrine drip added by cardiology. HR in the 110s, BP at 85/60s. 12/26: She says he continues to feel better. No chest pain or cute SOB. Chest x- ray this morning shows significant improvement of the pleural effusion. Lasix has been discontinued by cardiology. Esmolol drip was started yesterday. She continues to be on milrinone and Acosta-Synephrine drips. Daughter on bedside and updated about findings. 12/27: No acute event overnight. She was weaned off esmolol and Acosta-Synephrine drips last night. She remains on milrinone drip. Blood pressure is stable at 105/70. She continues to do better. She denies chest pain or shortness of colton ath. Repeat chest x-ray continued to show significant improvement. Reason For Visit: AFIB, LUNG CA Physical Exam Vital Signs: Temp Pulse Resp BP Pulse Ox 99.1 F 107 H 22 H 105/71 99 12/27/18 08:00 12/27/18 09:04 12/27/18 08:08 12/27/18 08:08 12/27/18 08:08 Intake & Output 12/26/18 12/27/18 12/28/18 06:59 06:59 06:59 Intake Total 2301 2912 100 Output Total 3425 2175 150 Balance -1124 737 -50 Weight 162 lb 11.218 oz 168 lb 13.985 oz General appearance: PRESENT: no acute distress, well-developed, well-nourished Head exam: PRESENT: atraumatic, normocephalic Eye exam: PRESENT: conjunctiva pink, EOMI, PERRLA. ABSENT: scleral icterus Ear exam: PRESENT: normal external ear exam Mouth exam: PRESENT: moist, tongue midline Neck exam: ABSENT: carotid bruit, JVD, lymphadenopathy, thyromegaly Respiratory exam: PRESENT: clear to auscultation jalil. ABSENT: rales, rhonchi, wheezes Cardiovascular exam: PRESENT: RRR. ABSENT: diastolic murmur, rubs, systolic murmur Pulses: PRESENT: normal dorsalis pedis pul GI/Abdominal exam: PRESENT: normal bowel sounds, soft. ABSENT: distended, guarding, mass, organolmegaly, rebound, tenderness Rectal exam: PRESENT: deferred Neurological exam: PRESENT: alert, awake, oriented to person, oriented to place, oriented to time, oriented to situation, CN II-XII grossly intact. ABSENT: motor sensory deficit Results Laboratory Results: 12/26/18 18:05 12/27/18 05:15 12/26/18 12/26/18 12/27/18 18:05 18:05 05:15 WBC 7.4 RBC 3.40 L Hgb 10.3 L Hct 30.8 L MCV 91 MCH 30.2 MCHC 33.4 RDW 16.4 H Plt Count 142 L Seg Neutrophils % 75.3 Lymphocytes % 9.0 L Monocytes % 13.1 H Eosinophils % 2.3 Basophils % 0.3 Absolute Neutrophils 5.6 Absolute Lymphocytes 0.7 Absolute Monocytes 1.0 Absolute Eosinophils 0.2 Absolute Basophils 0.0 Sodium 144.1 141.8 Potassium 3.7 3.4 L Chloride 105 109 H Carbon Dioxide 29 28 Anion Gap 10 5 BUN 11 9 Creatinine 0.46 L 0.42 L Est GFR ( Amer) > 60 > 60 Est GFR (Non-Af Amer) > 60 > 60 Glucose 174 H 133 H Calcium 8.1 L 8.0 L Magnesium 1.8 Urine Color Urine Appearance Urine pH Ur Specific [place] Urine Protein Urine Glucose (UA) Urine Ketones Urine Blood Urine Nitrite Ur Leukocyte Esterase Urine WBC (Auto) Urine RBC (Auto) 12/27/18 05:15 WBC RBC Hgb Hct MCV MCH MCHC RDW Plt Count Seg Neutrophils % Lymphocytes % Monocytes % Eosinophils % Basophils % Absolute Neutrophils Absolute Lymphocytes Absolute Monocytes Absolute Eosinophils Absolute Basophils Sodium Potassium Chloride Carbon Dioxide Anion Gap BUN Creatinine Est GFR ( Amer) Est GFR (Non-Af Amer) Glucose Calcium Magnesium Urine Color YELLOW Urine Appearance CLEAR Urine pH 6.0 Ur Specific [place] 1.018 Urine Protein 30 H Urine Glucose (UA) NEGATIVE Urine Ketones NEGATIVE Urine Blood SMALL H Urine Nitrite NEGATIVE Ur Leukocyte Esterase NEGATIVE Urine WBC (Auto) 4 Urine RBC (Auto) 14 12/22/18 09:20 Blood Blood Culture - Final NO GROWTH IN 5 DAYS 12/22/18 09:10 Blood Blood Culture - Final NO GROWTH IN 5 DAYS 12/21/18 12/21/18 12/21/18 16:10 16:10 20:25 Creatine Kinase 1148 H CK-MB (CK-2) Troponin I 0.019 NT-Pro-B Natriuret Pep 1920 H 12/21/18 12/22/18 12/22/18 20:25 02:33 02:33 Creatine Kinase 1091 H CK-MB (CK-2) 23.10 H 26.80 H Troponin I 0.019 0.015 NT-Pro-B Natriuret Pep 12/22/18 12/22/18 12/24/18 09:20 09:20 03:55 Creatine Kinase 1090 H 183 H CK-MB (CK-2) 29.00 H Troponin I 0.017 NT-Pro-B Natriuret Pep 12/24/18 03:55 Creatine Kinase CK-MB (CK-2) 4.41 Troponin I < 0.012 NT-Pro-B Natriuret Pep Impressions: Chest/Abdomen CTA 12/21/18 16:57 IMPRESSION: There is no evidence of pulmonary emboli. 13 mm spiculated right pulmonary nodule. Bilateral moderate pleural effusions, right slightly greater than left. Chest X-Ray 12/27/18 00:00 IMPRESSION: 1. Since the prior study dated 12/26/2018, decrease in the right lower lung airspace disease. The right pleural effusion has also decreased with small right pleural effusion remaining. 2. Slight decrease in the left lower lung airspace disease. Assessment and Plan - Diagnosis (1) Acute systolic (congestive) heart failure Is this a current diagnosis for this admission?: Yes Plan: Likely chemotherapy-induced. Echo showed an EF of 30%. Cardiology following. Currently on milrinone and IV Lasix. 12/25: Currently on milrinone infusion. Neosynephrine drip added by cardiology. HR in the 110s, BP at 85/60s. Continue Lasix and lopressor. Cardizem drip on hold. 12/26: Improving. Chest x-ray this morning shows significant improvement of the pleural effusion. Lasix has been discontinued by cardiology. She does appear to be now on the dry side. Esmolol drip was started yesterday. She continues to be on milrinone and Acosta-Synephrine drips. 12/27: Continue to significantly improve. She was weaned off esmolol and Acosta- Synephrine drips last night. She remains on milrinone drip. Blood pressure is stable at 105/70. She continues to do better. She denies chest pain or shortness of breath. Repeat chest x-ray continued to show significant improvement. (2) Atrial fibrillation with RVR Is this a current diagnosis for this admission?: Yes Plan: On Lovenox, Lanoxin and Lopressor. She was initially on IV Cardizem but subsequently dropped her blood pressures. (3) Bilateral pleural effusion Is this a current diagnosis for this admission?: Yes Plan: Secondary to CHF exacerbation. Continue Lasix. 12/26: Significantly improved on today's chest x-ray. Lasix DCed by cardio. 12/27: Resolving. (4) Non-small cell lung cancer Qualifiers: Laterality: right Qualified Code(s): C34.91 - Malignant neoplasm of unspecified part of right bronchus or lung Is this a current diagnosis for this admission?: Yes Plan: Experimental chemotherapeutic drugs held off per [facility] team recommendation. 12/27: Appreciate oncology recommendation. (5) Hypokalemia Is this a current diagnosis for this admission?: Yes Plan: Continue replacement. Repeat potassium later today. - Time Time Spent with patient: 25-34 minutes
[2018-12-27] MEDS: MAGNESIUM HYDROXIDE SUSP 30 ML UDCUP PO PRN (17:38)
[2018-12-27] MEDS: FUROSEMIDE INJ/PF 20 MG/2 ML SDV IV SCH (17:40)
[2018-12-27] MEDS: LORAZEPAM 0.5 MG TABLET PO SCH (21:05)
[2018-12-27] MEDS: MELATONIN 5 MG TABLET PO SCH (21:08)
--- NOTE | 2018-12-27 21:52 | Progress Note ---
Provider Note Provider Note: CARDIOLOGY PROGRESS NOTE by Dr. aHylee Yin on SUBJECTIVE: The patient continues to be in atrial fibrillation. With occasional spurts of the heart rate in the above 130. Now is in the 1 teens. There is no chest pain or discomfort. Her shortness of breath is much much improved. There is no TIA CVA symptoms. The patient denies any orthopnea or PND. His leg edema is much improved. There is no ventricular arrhythmia seen on the monitor. PHYSICAL EXAMINATION: Patient is well-built and well-nourished in no acute distress. Selected Entries 12/27/18 12/27/18 07:07 07:55 Core 99.3 F Temperature Heart Rate ( 115 Monitors) Respiratory 16 Rate Blood Pressure 110/77 Blood Pressure 88 Mean O2 Sat by Pulse 93 Oximetry Oxygen Flow 2 Rate HEAD: Is atraumatic normocephalic. EYES: Pupils are equal round regular reactive to light accommodation. Extraocular movements are normal. There is no conjunctival pallor. Is no scleral icterus. EARS: Tympanic membranes are intact. External auditory canals are clear. NOSE: There is no deviated nasal s eptum. There is no inflammation nasal mucous membrane. MOUTH: Mucous membranes of mouth are moist. Tongue is moist. There is no ulcers. There is no bleeding from the gums. THROAT: There is no redness of the oropharynx. There is no exudates. SKIN: There is no skin lesions or skin rashes. There is no particular ecchymosis. NECK: Is supple. There is no JVD present. Carotids are equal there is no bruit. There is scar of prior thyroidectomy present. There is some diffuse enlargement of the thyroid gland. There is no lymphadenopathy. There is no accessory muscle respiration use. Trachea central. LUNGS: There is absent breath sounds in dullness in both the bases. I was not there is an area of fine rales of CHF. There is no chest wall tenderness. HEART: S1-S2 is heard. S1 is of variable intensity. There is no S3 gallop. There is no S4 gallop. There is systolic murmur left sternal border and the apex. There is murmur of severe mitral regurgitation present. With the murmur heard in the apex radiating to the left axilla. There is no aortic stenosis or aortic regurgitation murmur. There is no rub. ABDOMEN: Is obese. Nontender. There is no hepatospleno megaly. Bowel sounds well heard. EXTREMITIES: Femorals are diminished. There is no femoral bruits. Leg pulses are diminished. There is 2+ bilateral pitting edema. There is no DVT or cellulitis. There is no sinus or clubbing. There is no calf tenderness. FIELD CROP GROWER: The patient is conscious awake alert oriented x3 with no focal deficits. PSYCHIATRIC: The patient appears to be anxious. But has judgment insight are intact. Labs- All tests 24 hr 12/27/18 12/27/18 05:15 05:15 Sodium 141.8 Potassium 3.4 L Chloride 109 H Carbon Dioxide 28 Anion Gap 5 BUN 9 Creatinine 0.42 L Est GFR ( Amer) > 60 Est GFR (Non-Af Amer) > 60 Glucose 133 H Calcium 8.0 L Magnesium 1.8 Urine Color YELLOW Urine Appearance CLEAR Urine pH 6.0 Ur Specific [place] 1.018 Urine Protein 30 H Urine Glucose (UA) NEGATIVE Urine Ketones NEGATIVE Urine Blood SMALL H Urine Nitrite NEGATIVE Urine Bilirubin NEGATIVE Urine Urobilinogen NEGATIVE Ur Leukocyte Esterase NEGATIVE Urine WBC (Auto) 4 Urine RBC (Auto) 14 U Hyaline Cast (Auto) 1 Squamous Epi Cells Auto <1 Urine Mucus (Auto) RARE Urine Ascorbic Acid NEGATIVE Chest X-Ray 12/21/18 16:15 IMPRESSION: BASILAR ATELECTASIS VERSUS SCARRING. PROBABLE SMALL PLEURAL EFFUSIONS. Chest/Abdomen CTA 12/21/18 16:57 IMPRESSION: There is no evidence of pulmonary emboli. 13 mm spiculated right pulmonary nodule. Bilateral moderate pleural effusions, right slightly greater than left. Chest X-Ray 12/23/18 00:00 IMPRESSION: 1. CENTRAL LINE APPEARS TO BE IN APPROPRIATE POSITION. NO PNEUMOTHORAX. 2. MODERATE RIGHT PLEURAL EFFUSION. Chest X-Ray 12/24/18 00:00 IMPRESSION: Cardiomegaly with no gaby pulmonary edema. Right pleural effusion. Likely right lower lobe atelectasis. Chest X-Ray 12/25/18 07:00 IMPRESSION: Bilateral lower thoracic opacity/effusion. Moderate mixed airspace and interstitial opacities. Interval worsening. Chest X-Ray 12/26/18 00:00 IMPRESSION: Improved aeration in the right lung. Chest X-Ray 12/27/18 00:00 IMPRESSION: 1. Since the prior study dated 12/26/2018, decrease in the right lo wer lung airspace disease. The right pleural effusion has also decreased with small right pleural effusion remaining. 2. Slight decrease in the left lower lung airspace disease. The patient's 24-hour intake was 2912 mL. 24-hour output is 2195 mL. IMPRESSION/RECOMMENDATION: 1. Atrial fibrillation with still somewhat fast ventricular response. Note that the patient is off Acosta-Synephrine and also she is off the IV esmolol. She is on p.o. beta-dipak and IV and digoxin. The patient is on full dose Lovenox. Will later switch to Eliquis 5 mg p.o. twice daily. Also would recommend replacing the patient's potassium, since this can increase the heart rate. We will see if we can wean the patient off milrinone infusion. 2. Hypertension: Patient blood pressure improved with addition of midodrine 10 mg p.o. 3 times daily. We will continue this 3. Hypokalemia: Replace patient's potassium. 4.Acute systolic biventricular failure there is acute systolic right ventricular and left ventricular failure: This is much improved 5. 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 As per oncology this may be the result of the effects of the patient's breast cancer therapy medication. 6. Severe mitral regurgitation by exam and echo: Controlling the patient's heart rate, and trying to convert the patient to sinus rhythm, and also treating the patient's heart failure most likely will improve the patient's mitral regurg. 7. At least moderate pulmonary hypertension: An inotrope such as milrinone and IV nitroglycerin might be helpful. IV nitroglycerin will be started if the blood pressure permits. The other option is to control the patient's heart rate with a infusion of esmolol and start the patient on a Levophed drip. Will re assess the patient in the morning. 8. At least moderate bilateral pleural effusions: Most likely secondary to patient's heart failure which is biventricular. Doubt that this is secondary to Metastasis. This is much improved there is resolution of the left pleural effusion and there is only a minimal amount of right pleural effusion. 9. Past history of hypertension: At present blood pressure low. 10. History of lung cancer on experimental drug regimen protocol. Recommend oncology consult with . 11.. Thyroid status. The patient is euthyroid. 12. Anxiety: Consider antianxiety medication. Medications reviewed medications discussed with the attending physician as also the management plan. Discussed with the patient patient's daughter. Medical decision making is of high complexity. 40 minutes spent on this patient with more than 50% time spent in direct patient care. Dr. Tidwell will call me tomorrow
[2018-12-28] MEDS: IPRATROPIUM BROMIDE 0.02% NEB 0.5 MG/2.5 ML AMPUL NEB SCH ×3 (00:42→15:58)
[2018-12-28] MEDS: LEVALBUTEROL HCL NEB 1.25 MG/3 ML AMPUL NEB SCH ×3 (00:42→15:58)
[2018-12-28] MEDS: PANTOPRAZOLE SODIUM 40 MG TABLET.DR PO SCH ×2 (05:09→16:34)
[2018-12-28] MEDS: FUROSEMIDE INJ/PF 20 MG/2 ML SDV IV SCH ×2 (05:09→14:53)
[2018-12-28 06:45] LABS: ANION GAP 10 (5-19); BLOOD UREA NITROGEN 16 mg/dL (7-20); CALCIUM 9.1 mg/dL (8.4-10.2); CARBON DIOXIDE 30 mmol/L (22-30); CHLORIDE 104 mmol/L (98-107); GLUCOSE 112 mg/dL (75-110); POTASSIUM 3.5 mmol/L (3.6-5.0); SODIUM 144.4 mmol/L (137-145)
[2018-12-28] MEDS ORDERED: PROCHLORPERAZINE MALEATE 10 MG TABLET PO PRN (09:21)
[2018-12-28] MEDS ORDERED: OXYCODONE HCL IR 5 MG TABLET PO PRN (09:21)
[2018-12-28] MEDS: FLUTICASONE NASAL SPRAY 50 MCG/SPRY 120 SPRAY/16 GM NASL SCH (09:52)
[2018-12-28] MEDS: MIDODRINE HCL 5 MG TABLET PO SCH ×2 (09:53→14:54)
[2018-12-28] MEDS: DIGOXIN 0.125 MG TABLET PO SCH (09:53)
[2018-12-28] MEDS: METOPROLOL TARTRATE 50 MG TABLET PO SCH (09:53)
[2018-12-28] MEDS: ESCITALOPRAM OXALATE 10 MG TABLET PO SCH (09:53)
[2018-12-28] MEDS ORDERED: OMEGA-3 ACID ETHYL ESTERS 1 GM CAPSULE PO SCH (10:00)
[2018-12-28] MEDS ORDERED: IRON PO SCH (10:00)
[2018-12-28] MEDS ORDERED: [UNRECOGNIZED DRUG - OTHER] PO SCH (10:00)
[2018-12-28] MEDS ORDERED: OSIMERTINIB MESYLATE 80 MG PO SCH (10:00)
[2018-12-28] MEDS ORDERED: CALCIUM CARBONATE 250 MG/VITAMIN D3 125 UNIT TABLET PO SCH (10:00)
[2018-12-28] MEDS ORDERED: VITAMIN D3 PO SCH (10:00)
[2018-12-28] MEDS ORDERED: MULTIVITAMIN TABLET PO SCH (10:00)
[2018-12-28] MEDS ORDERED: LORATADINE 10 MG TABLET PO SCH (10:00)
[2018-12-28] MEDS ORDERED: (PENDING PHARMACY ID) (Flaxseed Oil [Flax Seed Oil] 1,000 MG) PO SCH (10:00)
[2018-12-28] MEDS ORDERED: LUTEIN PO SCH (10:00)
[2018-12-28] MEDS ORDERED: APIXABAN 5 MG TABLET PO SCH (10:00)
[2018-12-28] MEDS ORDERED: FATTY ACIDS PO SCH (10:00)
[2018-12-28] MEDS ORDERED: [UNRECOGNIZED DRUG - OTHER] PO SCH (10:00)
[2018-12-28] MEDS ORDERED: [UNRECOGNIZED DRUG - OTHER] PO SCH (10:00)
[2018-12-28] MEDS ORDERED: OMEGA PO SCH (10:00)
[2018-12-28] MEDS ORDERED: FOLIC PO SCH (10:00)
[2018-12-28] MEDS ORDERED: CALCIUM CARBONATE PO SCH (10:00)
[2018-12-28] MEDS ORDERED: [UNRECOGNIZED DRUG - OTHER] PO SCH (10:00)
[2018-12-28] MEDS ORDERED: FISH OIL PO SCH (10:00)
[2018-12-28] MEDS ORDERED: MULTIVIT MIN PO SCH (10:00)
[2018-12-28] MEDS ORDERED: [UNRECOGNIZED DRUG - OTHER] PO SCH (10:00)
--- NOTE | 2018-12-28 10:12 | RADIOLOGY REPORT (SQ) ---
EXAM DESCRIPTION: CHEST SINGLE VIEW COMPLETED DATE/TIME: 12/28/2018 10:01 am REASON FOR STUDY: chf COMPARISON: 12/27/2018 EXAM PARAMETERS: NUMBER OF VIEWS: One view. TECHNIQUE: Single frontal radiographic view of the chest acquired. RADIATION DOSE: NA LIMITATIONS: None. FINDINGS: LUNGS AND PLEURA: Stable left lower lung opacity- small left pleural effusion. The airsp maxine disease and small right pleural effusion are unchanged findings. No pneumothorax. MEDIASTINUM AND HILAR STRUCTURES: Stable in appearance. HEART AND VASCULAR STRUCTURES: Heart normal in size. Normal vasculature. BONES: No acute findings. HARDWARE: Left central venous line, unchanged. OTHER: No other significant finding. IMPRESSION: 1. No significant interval changes since the prior study dated 12/27/2018. TECHNICAL DOCUMENTATION: JOB ID: [id number] [employer] [place]- All Rights Reserved Reading location - IP/workstation name: [email or web address]
--- NOTE | 2018-12-28 10:20 | PDOC PROGRESS REPORT ---
Subjective Progress Note for:: 12/28/18 Reason For Visit: AFIB, LUNG CA 78-year-old female patient with past medical history of non-small cell lung cancer on chemotherapy admitted few days ago with acute congestive heart failure and found to be in atrial fibrillation with rapid ventricular rate. She has so far being managed with inotrope support with milrinone which has since been discontinued. She is currently on rate control with metoprolol tartrate and on rhythm control with digoxin along with midodrine for hypotension. Patient seen at bedside and still on 4 L oxygen via nasal cannula but claims to be feeling better as far as her breathing is concerned denies any chest pain. She denies any previous history of any cardiac disease. Physical Exam Vital Signs: Temp Pulse Resp BP Pulse Ox 99.7 F 115 H 18 118/71 95 12/28/18 08:00 12/28/18 08:37 12/28/18 08:37 12/28/18 08:00 12/28/18 08:37 Intake & Output 12/27/18 12/28/18 12/29/18 06:59 06:59 06:59 Intake Total 2912 548 Output Total 2175 1875 425 Balance 737 -1977 -425 Weight 76.6 kg General appearance: PRESENT: mild distress Head exam: PRESENT: atraumatic, normocephalic Neck exam: PRESENT: full ROM, JVD Respiratory exam: PRESENT: accessory muscle use, decreased breath sounds, rales Cardiovascular exam: PRESENT: irregular rhythm, tachycardia GI/Abdominal exam: PRESENT: normal bowel sounds, soft Extremities exam: PRESENT: full ROM Musculoskeletal exam: PRESENT: full ROM Neurological exam: PRESENT: alert, awake, oriented to person, oriented to place, oriented to time, oriented to situation, CN II-XII grossly intact Psychiatric exam: PRESENT: anxious Results Laboratory Results: 12/26/18 18:05 12/28/18 05:56 12/28/18 12/28/18 04:30 05:56 Sodium Cancelled 144.4 Potassium Cancelled 3.5 L Chloride Cancelled 104 Carbon Dioxide Cancelled 30 Anion Gap Cancelled 10 BUN Cancelled 16 Creatinine Cancelled 0.52 Est GFR ( Amer) Cancelled > 60 Est GFR (Non-Af Amer) Cancelled > 60 Glucose Cancelled 112 H Calcium Cancelled 9.1 Magnesium Cancelled 2.1 12/22/18 09:20 Blood Blood Culture - Final NO GROWTH IN 5 DAYS 12/22/18 09:10 Blood Blood Culture - Final NO GROWTH IN 5 DAYS 12/21/18 12/21/18 12/21/18 16:10 16:10 20:25 Creatine Kinase 1148 H CK-MB (CK-2) Troponin I 0.019 NT-Pro-B Natriuret Pep 1920 H 12/21/18 12/22/18 12/22/18 20:25 02:33 02:33 Creatine Kinase 1091 H CK-MB (CK-2) 23.10 H 26.80 H Troponin I 0.019 0.015 NT-Pro-B Natriuret Pep 12/22/18 12/22/18 12/24/18 09:20 09:20 03:55 Creatine Kinase 1090 H 183 H CK-MB (CK-2) 29.00 H Troponin I 0.017 NT-Pro-B Natriuret Pep 12/24/18 03:55 Creatine Kinase CK-MB (CK-2) 4.41 Troponin I < 0.012 NT-Pro-B Natriuret Pep Impressions: Chest/Abdomen CTA 12/21/18 16:57 IMPRESSION: There is no evidence of pulmonary emboli. 13 mm spiculated right pulmonary nodule. Bilateral moderate pleural effusions, right slightly greater than left. Assessment & Plan - Notes Notes: Reviewed labs, EKG, telemetry, imaging test. Patient with acute systolic heart failure with atrial fibrillation with rapid ventricular rate and brittle blood pressures. She appears warm and well perfused on exam with evidence of fluid overload. We discussed at length with patient and her daughter management options for her atrial fibrillation and we strongly recommend rhythm control with FRANCISCO guided DC cardioversion and then reevaluate patient's systolic function and mitral valve disease. Echo obtained at [facility] showed severe mitral regurgitation along with decreased LVEF. We agree with systemic anticoagulation at this time. Recommend discontinuation of midodrine therapy and substituting metoprolol tartrate with metoprolol succinate per heart failure guidelines. Since FRANCISCO is not available at this facility patient will need transfer to a tertiary care facility for FRANCISOC guided cardioversion and further cardiac care. Discussed options with the patient and since she is already following with week oncology patient requested transfer to [place]. Spoke to on-call CCU fellow at [facility] and Dr. Ayers's team has accepted patient for transfer to [facility]. Spoke about transfer plan to patient's primary hospitalist as well as oncologist and they are both in agreement with that. - Time Time with patient: Greater than 35 minutes
--- NOTE | 2018-12-28 10:31 | PDOC TRANSFER SUMMARY ---
General Admission Date/PCP: 12/21/18 20:14 MARAL KING Resuscitation Status: Full Code - Transfer Diagnosis (1) Acute systolic (congestive) heart failure Is this a current diagnosis for this admission?: Yes Diagnosis Summary: Likely chemotherapy-induced. Echo showed an EF of 30%. Cardiology following. Currently on milrinone and IV Lasix. 12/25: Currently on milrinone infusion. Neosynephrine drip added by cardiology. HR in the 110s, BP at 85/60s. Continue Lasix and lopressor. Cardizem drip on hold. 12/26: Improving. Chest x-ray this morning shows significant improvement of the pleural effusion. Lasix has been discontinued by cardiology. She does appear to be now on the dry side. Esmolol drip was started yesterday. She continues to be on milrinone and Acosta-Synephrine drips. 12/27: Continue to significantly improve. She was weaned off esmolol and Acosta- Synephrine drips last night. She remains on milrinone drip. Blood pressure is stable at 105/70. She continues to do better. She denies chest pain or shortness of breath. Repeat chest x-ray continued to show significant improvement. 12/28/[id number]-qqdu-old female admitted for acute bilateral heart failure most likely chemotherapy-induced Dr. Yin following the patient chest x-rays indicating bilateral pleural effusions presently off esmolol and on Acosta- Synephrine. Still on milrinone drip. Blood pressure today is 118/71 and comfortably in the bed. Today's chest x-ray report is pending. Pulse ox is 95% on [address] Tidwell customer service manager extraction operator saw the patient this morning because of the persistent atrial fibrillation and multiple comorbidities he thinks is better for the patient to be transferred to [facility] he spoke to Dr. Ayers at [facility] and the patient was accepted there. (2) Atrial fibrillation with RVR Is this a current diagnosis for this admission?: Yes Diagnosis Summary: On Lovenox, Lanoxin and Lopressor. She was initially on IV Cardizem but subsequently dropped her blood pressures. 12/28/2018-patient still in A. fib with heart rate is around 115. Presently on apixaban, digoxin, Lopressor. Initially patient is on esmolol drip and diltiazem drip. Dr. 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 Ayers at [facility] patient was accepted there if the bed is available patient go to either ICU or telemetry today. (3) Bilateral pleural effusion Is this a current diagnosis for this admission?: Yes Diagnosis Summary: Secondary to CHF exacerbation. Continue Lasix. 12/26: Significantly improved on today's chest x-ray. Lasix DCed by cardio. 12/27: Resolving. 12/28/[id number]-ogmw-old female admitted with acute right and left heart failure with bilateral pleural effusions. Initially was on IV Lasix which was discontinued the effusions are improving patient is on milrinone drip at this point. Plan is to continue the present management. pt is going to [facility] if the bed is available. (4) Hypertension Is this a current diagnosis for this admission?: Yes Diagnosis Summary: 12/28/2018-patient has history of hypertension blood pressures on the softer side now it is 118/71. Plan is to continue the present management. (5) Hypokalemia Is this a current diagnosis for this admission?: Yes Diagnosis Summary: 12/28/2018-today's serum potassium is 3.6 hypokalemia is resolved. (6) Non-small cell lung cancer Is this a current diagnosis for this admission?: Yes Diagnosis Summary: Experimental chemotherapeutic drugs held off per [facility] team recommendation. 12/27: Appreciate oncology recommendation. 12/28/[id number]-oeob-old female with small cell lung cancer on experimental chemotherapy and dose medications are on hold at this point. - Transfer Medications Home Medications: Calcium Carbonate/Vitamin D3 [Calcium 600-Vit D3 800 Caplet] 1 tab PO DAILY 12/21/18 Escitalopram Oxalate [Lexapro 10 mg Tablet] 10 mg PO DAILY 12/21/18 Flaxseed Oil [Flax Seed Oil] 1,000 mg PO DAILY 12/21/18 Gluc Avila/Chondro Avila A/Vit C/Mn [Glucosamine Complex Capsule] 1 cap PO DAILY 12/21/18 Lisinopril [Prinivil 10 mg Tablet] 10 mg PO DAILY 12/21/18 Loratadine [Claritin 10 mg Tablet] 10 mg PO DAILY 12/21/18 Lorazepam [Ativan 0.5 mg Tablet] 0.5 mg PO QHS 12/21/18 Melatonin [Melatonin 5 mg Tablet] 5 mg PO QHS 12/21/18 Meloxicam [Mobic] 15 mg PO DAILY 12/21/18 Multivit-Min/Iron/Folic/Lutein [Multivitamin Women 50 Plus Tab] 1 tab PO DAILY 12/21/18 Check-3 Fatty Acids/Fish Oil [Eql Fish Oil 1,200 mg Softgel] 1 cap PO DAILY 12/21/18 Osimertinib Mesylate [Tagrisso] 80 mg PO DAILY 12/21/18 Oxycodone HCl [Oxy-Ir 5 mg Tablet] 5 mg PO Q4HP PRN 12/21/18 Prochlorperazine Maleate [Compazine 10 mg Tablet] 10 mg PO Q6HP PRN 12/21/18 Selumetinib 75 mg PO BID 12/21/18 Transfer Medications: Current Medications Acetaminophen (Tylenol 325 Mg Tablet) 650 mg PO Q4HP PRN PRN Reason: FOR PAIN OR TEMP Stop: 01/20/19 19:47 Last Admin: 12/27/18 21:21 Dose: 650 mg Documented by: Al Hydrox/Mg Hydrox/Simethicone (Maalox Plus Susp 30 Udcup) 30 ml PO Q6HP PRN PRN Reason: HEARTBURN Stop: 01/20/19 19:47 Apixaban (Eliquis 5 Mg Tablet) 5 mg PO BID [facility] Stop: 01/27/19 09:59 Last Admin: 12/28/18 09:52 Dose: 5 mg Documented by: Calcium Carbonate (Os-Rico 250 Mg With Vitamin D 125 Units) 1 tab PO DAILY [facility] Stop: 01/27/19 09:59 Digoxin (Lanoxin 0.125 Mg Tablet) 0.125 mg PO DAILY [facility] Stop: 01/21/19 10:14 Last Admin: 12/28/18 09:53 Dose: 0.125 mg Documented by: Escitalopram Oxalate (Lexapro 10 Mg Tablet) 10 mg PO DAILY [facility] Stop: 01/21/19 09:59 Last Admin: 12/28/18 09:53 Dose: 10 mg Documented by: Fluticasone Propionate (Flonase Nasal [place] 50 Mcg/[place] 16 Gm) 2 spray NASL Q12 [facility] Stop: 01/20/19 19:59 Last Admin: 12/28/18 09:52 Dose: 2 spr Documented by: Furosemide (Lasix Inj/Pf 20 Mg/2 Ml Sdv) 20 mg IV Q8 [facility] Stop: 01/26/19 17:59 Last Admin: 12/28/18 05:09 Dose: 20 mg Documented by: Diltiazem HCl (Cardizem Rtu Inj 125 Mg-D5w 125 Ml Premix) 125 mg in 125 mls @ 2.5 mls/hr IV CONTINUOUS PRN; Protocol PRN Reason: THIS MED IS NOT "PRN" Stop: 01/21/19 19:17 Last Infusion: 12/28/18 00:06 Dose: Infused Documented by: Milrinone Lactate/Dextrose (Primacor Rtu 20 Mg-D5w 100 Ml Premix Bag) 20 mg in 100 mls @ 9.079 mls/hr IV CONTINUOUS PRN; Protocol PRN Reason: THIS MED IS NOT "PRN" Stop: 01/22/19 14:06 Last Titration: 12/28/18 00:03 Dose: Infused Documented by: Hard Fat/Phenylephrine 40 mg/ (Dextrose) 250 mls @ 0 mls/hr IV CONTINUOUS PRN; Protocol PRN Reason: THIS MED IS NOT "PRN" Stop: 01/23/19 11:35 Last Titration: 12/28/18 00:06 Dose: Infused Documented by: Esmolol HCl (Brevibloc Rtu 2500 Mg/250 Ml Nacl Premix Bag) 2,500 mg in 250 mls @ 0 mls/hr IV CONTINUOUS PRN; Protocol PRN Reason: THIS MED IS NOT "PRN" Stop: 01/24/19 13:40 Last Titration: 12/28/18 00:01 Dose: Infused Documented by: Ipratropium [place] (Atrovent 0.02% Neb 0.5 Mg/2.5 Ml Ampul) 0.5 mg NEB RTQ8 [facility] Stop: 01/21/19 00:00 Last Admin: 12/28/18 08:37 Dose: 0.5 mg Documented by: Levalbuterol HCl (Xopenex Neb 1.25 Mg/3 Ml Ampul) 1.25 mg NEB RTQ8 [facility] Stop: 01/21/19 00:00 Last Admin: 12/28/18 08:36 Dose: 1.25 mg Documented by: Levalbuterol HCl (Xopenex Neb 1.25 Mg/3 Ml Ampul) 1.25 mg NEB [id number] PRN PRN Reason: SHORTNESS OF BREATH Stop: 01/20/19 19:43 Last Admin: 12/24/18 02:12 Dose: 1.25 mg Documented by: Loratadine (Claritin 10 Mg Tablet) 10 mg PO DAILY [facility] Stop: 01/27/19 09:59 Lorazepam (Ativan 0.5 Mg Tablet) 0.5 mg PO QHS [facility] Stop: 12/29/18 21:59 Last Admin: 12/27/18 21:05 Dose: 0.5 mg Documented by: Lorazepam (Ativan Inj 2 Mg/1 Ml Vial) 1 mg IV Q8HP PRN PRN Reason: ANXIETY Stop: 12/30/18 14:06 Magnesium Hydroxide (Milk Of Magnesia 30 Ml Udcup) 30 ml PO HSP PRN PRN Reason: FOR CONSTIPATION Stop: 01/20/19 19:47 Last Admin: 12/27/18 17:38 Dose: 30 ml Documented by: Melatonin (Melatonin 5 Mg Tablet) 5 mg PO QHS [facility] Stop: 01/21/19 21:59 Last Admin: 12/27/18 21:08 Dose: 5 mg Documented by: Metoprolol Tartrate (Lopressor Inj/Pf 5 Mg/5 Ml Sdv) 5 mg IV Q6HP PRN PRN Reason: hr>100 Stop: 01/20/19 19:47 Last Admin: 12/26/18 08:45 Dose: 5 mg Documented by: Metoprolol Tartrate (Lopressor 50 Mg Tablet) 50 mg PO Q12 [facility] Stop: 01/21/19 10:12 Last Admin: 12/28/18 09:53 Dose: 50 mg Documented by: Midodrine (Proamatine 5 Mg Tablet) 10 mg PO TID [facility] Stop: 01/25/19 09:59 Last Admin: 12/28/18 09:53 Dose: 10 mg Documented by: Multivitamins (Tab-A-Enzo (Multiple Vitamin) Tablet) 1 tab PO DAILY [facility] Stop: 01/27/19 09:59 Rkjoa-[id number]-Huzg Ethyl Esters (Lovaza 1 Gm Capsule) 1 gm PO DAILY [facility] Stop: 01/27/19 09:59 Oxycodone HCl (Oxy-Ir 5 Mg Tablet) 5 mg PO Q4HP PRN PRN Reason: FOR PAIN Stop: 01/04/19 09:20 Pantoprazole Sodium (Protonix [address] Tablet) 40 mg PO BID@0600,1700 [facility] Stop: 01/21/19 05:59 Last Admin: 12/28/18 05:09 Dose: 40 mg Documented by: Patient Own Medication (Flaxseed Oil [Flax Seed Oil]) 1,000 mg PO .DAILY [facility] Stop: 01/27/19 09:59 Patient Own Medication (Gluc Avila/Chondro Avila A/Vit C/Mn [Glucosamine Complex Capsule]) 1 cap PO .DAILY [facility] Stop: 01/27/19 09:59 Patient Own Medication (Osimertinib Mesylate [Tagrisso]) 80 mg PO .DAILY [facility] Stop: 01/27/19 09:59 Patient Own Medication (Selumetinib) 75 mg PO .BID [facility] Stop: 01/27/19 09:59 Prochlorperazine Maleate (Compazine 10 Mg Tablet) 10 mg PO Q6HP PRN PRN Reason: FOR NAUSEA/VOMITING Stop: 01/27/19 09:20 - Allergies Allergies/Adverse Reactions: Sulfa (Sulfonamide Antibiotics) Allergy (Verified 12/21/18 17:01) Hospital Course Hospital Course: 78 year old female with a past medical history of anxiety, GERD and non-small cell lung cancer on experimental chemotherapy via [facility]. She presents with greater than 72 hours of palpitations and shortness of breath. Denies chest pain nausea vomiting diaphoresis or new medications beyond chemotherapy. Work-up reveals negative CTA for PE but moderate bilateral pulmonary emboli, A. fib with RVR in the 180s. She started on IV Cardizem and referred to the hospitalist for admission. During the hospital stay she had echocardiogram done which indicates severely reduced ejection fraction with global hypokinesis. Patient was transferred to ICU on 12/23/2018 and started on milrinone drip. IV Lasix is also continued. As per the [facility] oncology recommendations chemotherapy was on hold. Patient is continued to have A. fib with RVR initially on diltiazem because of the hypotension diltiazem was was discontinued later on started on esmolol which was discontinued. Presently she is on apixaban, Lopressor are under digoxin. The cardiology saw the patient today patient and the family are agreeable. Follow- up chest x-ray is done shows improved bilateral pleural effusions. Patient and family agreeable to go to [facility] today. Physical Exam Vital Signs: Temp Pulse Resp BP Pulse Ox 99.7 F 115 H 18 118/71 95 12/28/18 08:00 12/28/18 08:37 12/28/18 08:37 12/28/18 08:00 12/28/18 08:37 Intake & Output 12/27/18 12/28/18 12/29/18 06:59 06:59 06:59 Intake Total 2912 548 Output Total 1201 3865 425 Balance Weight 76.6 kg General appearance: PRESENT: no acute distress Head exam: PRESENT: atraumatic Eye exam: PRESENT: PERRLA Mouth exam: PRESENT: dry mucosa Neck exam: ABSENT: carotid bruit, JVD, lymphadenopathy, thyromegaly Respiratory exam: PRESENT: decreased breath sounds Cardiovascular exam: PRESENT: irregular rhythm, systolic murmur. ABSENT: diastolic murmur, rubs Pulses: PRESENT: normal dorsalis pedis pul GI/Abdominal exam: PRESENT: normal bowel sounds, soft. ABSENT: distended, guarding, mass, organolmegaly, rebound, tenderness Rectal exam: PRESENT: deferred Extremities exam: PRESENT: +1 edema Neurological exam: PRESENT: alert Psychiatric exam: PRESENT: appropriate affect, normal mood. ABSENT: homicidal ideation, suicidal ideation Results Laboratory Results: 12/26/18 18:05 12/28/18 05:56 12/28/18 12/28/18 04:30 05:56 Sodium Cancelled 144.4 Potassium Cancelled 3.5 L Chloride Cancelled 104 Carbon Dioxide Cancelled 30 Anion Gap Cancelled 10 BUN Cancelled 16 Creatinine Cancelled 0.52 Est GFR ( Amer) Cancelled > 60 Est GFR (Non-Af Amer) Cancelled > 60 Glucose Cancelled 112 H Calcium Cancelled 9.1 Magnesium Cancelled 2.1 12/22/18 09:20 Blood Blood Culture - Final NO GROWTH IN 5 DAYS 12/22/18 09:10 Blood Blood Culture - Final NO GROWTH IN 5 DAYS 12/21/18 12/21/18 12/21/18 16:10 16:10 20:25 Creatine Kinase 1148 H CK-MB (CK-2) Troponin I 0.019 NT-Pro-B Natriuret Pep 1920 H 12/21/18 12/22/18 12/22/18 20:25 02:33 02:33 Creatine Kinase 1091 H CK-MB (CK-2) 23.10 H 26.80 H Troponin I 0.019 0.015 NT-Pro-B Natriuret Pep 12/22/18 12/22/18 12/24/18 09:20 09:20 03:55 Creatine Kinase 1090 H 183 H CK-MB (CK-2) 29.00 H Troponin I 0.017 NT-Pro-B Natriuret Pep 12/24/18 03:55 Creatine Kinase CK-MB (CK-2) 4.41 Troponin I < 0.012 NT-Pro-B Natriuret Pep Impressions: Chest/Abdomen CTA 12/21/18 16:57 IMPRESSION: There is no evidence of pulmonary emboli. 13 mm spiculated right pulmonary nodule. Bilateral moderate pleural effusions, right slightly greater than left.
[2018-12-28 16:29] VITALS: BP 109/82
== END 2018-12-28 17:30 | disposition short-term general hospital (02) | DRG 308 ==
LOC: ER 15:50 → EH 20:14 → 3S 12-22 17:19 → ICU 12-23 12:19
PROVIDERS: ADMIT Internal Medicine; ATTEND Internal Medicine
PROC: 02HV33Z Insertion of Infusion Device into Superior Vena Cava, Percutaneous Approach (ICD-10-PCS; principal; 2018-12-23)
PROC: B548ZZA Ultrasonography of Superior Vena Cava, Guidance (ICD-10-PCS; 2018-12-23)
DX: I48.91 Unspecified atrial fibrillation (principal); I50.21 Acute systolic (congestive) heart failure; C34.90 Malignant neoplasm of unspecified part of unspecified bronchus or lung; I42.9 Cardiomyopathy, unspecified; T45.1X5A Adverse effect of antineoplastic and immunosuppressive drugs, initial encounter; K21.9 Gastro-esophageal reflux disease without esophagitis; F41.9 Anxiety disorder, unspecified; I10 Essential (primary) hypertension; F32.9 Major depressive disorder, single episode, unspecified; R74.0 Nonspecific elevation of levels of transaminase and lactic acid dehydrogenase [LDH]; I87.8 Other specified disorders of veins; E87.6 Hypokalemia; I34.0 Nonrheumatic mitral (valve) insufficiency; I27.20 Pulmonary hypertension, unspecified; Z88.2 Allergy status to sulfonamides; Z90.710 Acquired absence of both cervix and uterus; Z87.891 Personal history of nicotine dependence
CPT/HCPCS: 36415; 71045; 71275; 80048; 80053; 80162; 81001; 82272; 82550; 82553; 83735; 83880; 84439; 84443; 84481; 84484; 85025; 86376; 87040; 93005; 93010; 93306; 94640; 94667; 94668; 94799; 96374; 96375; 99291; C1751; J0610; J1160; J1650; J1940; J1956; J2060; J2260; J2370; J3480; J3490; J7030; J7060; J7620